=== PATIENT | male | born 1965 | race Caucasian/White ===

== ENCOUNTER → 2018-05-15 09:44 | Outpatient (CLI) | payer OTHER, SELFPAY ==
--- NOTE | 2018-05-15 09:45 | XR_ITS ---
EXAM: XR thoracic spine 3V HISTORY: ITS.REASON: pain Comparison: None FINDINGS: Normal alignment. No fracture or dislocation. No lytic or blastic change. Minimal endplate hypertrophic changes are present. Slight decrease in the disc space in the mid thoracic spine. IMPRESSION: Mild degenerative change mid thoracic spine, no acute finding
--- NOTE | 2018-05-15 09:45 | XR_ITS ---
EXAM: XR lumbar spine 2-3V HISTORY: ITS.REASON: pain ORDERING PHYSICIAN: Nissa Dueñas PATIENT AGE: 52 years COMPARISON: None FINDINGS: Normal alignment. No fracture or dislocation. No lytic or blastic change. Small endplate osteophytes are present with slight decrease in the disc space at L3-L4 and mild facet arthritic changes at L4-L5. IMPRESSION: Mild degenerative changes, no acute finding
[2018-05-15 13:30] LABS: Basophils % 0.2 % (0.1-2.0); Eosinophils % 0.7 % (0.1-12.0); Hematocrit 44.8 % (42.0-52.0); Hemoglobin 14.7 g/dL (14.1-18.0); Lymphocytes # 1.6 K/mm3 (0.7-4.5); Lymphocytes % 30.4 % (10-50); Mean Corpuscular HGB Conc 32.9 g/dL (31.8-35.4); Mean Corpuscular Hemoglobin 29.8 pg (27.0-31.2); Mean Corpuscular Volume 90.5 fl (80-94); Mean Platelet Volume 6.9 fl (7.4-10.4); Monocytes # 0.2 K/mm3 (0.1-1.0); Monocytes % 3.7 % (1.7-9.3); Neutrophils # 3.4 K/mm3 (1.8-7.8); Neutrophils % 64.9 % (37.0-80.0); Platelet Count 191 K/mm3 (142-424); Red Blood Count 4.94 M/mm3 (4.60-6.20); Red Cell Distribution Width 14.2 % (11.5-17.5); White Blood Count 5.3 K/mm3 (4.8-10.8)
[2018-05-15 14:48] LABS: Alanine Aminotransferase 22 U/L (12-78); Albumin Level 3.9 gm/dL (3.4-5.0); Albumin/Globulin Ratio 1.5 (1.1-1.8); Alkaline Phosphatase 76 U/L (46-116); Anion Gap 15.6 mEq/L (5-15); Aspartate Amino Transferase 11 U/L (15-37); Blood Urea Nitrogen 9 mg/dL (7-18); Calcium 8.7 mg/dL (8.5-10.1); Carbon Dioxide 24 mmol/L (21.0-32.0); Chloride 104 mmol/L (98-107); Chol/HDL Ratio 7.1 (1-3.5); Cholesterol 214 mg/dL (140-200); Creatinine,Serum 0.82 mg/dL (0.70-1.30); Estimated Glomerular Filt Rate 99 ml/min (>60); GFR (African American) 119 ML/MIN (>60); Globulin 2.6 gm/dl (1.3-3.2); Glucose 134 mg/dL (74-106); HDL Cholesterol 30 mg/dL (27-67); LDL Cholesterol 165 mg/dL (0-130); Potassium 3.6 mmoL/L (3.5-5.1); Sodium 140 mmol/L (136-145); T4 (Thyroxine) 8.2 ug/dl (4.7-13.3); Thyroid Stimulating Hormone 2.44 uIU/ml (0.358-3.740); Total Protein,Serum 6.5 gm/dL (6.4-8.2); Triglycerides 93 mg/dL (30-200); VLDL Cholesterol 19 mg/dL (0-40)
[2018-05-15 18:15] LABS: Amphetamine/Metha Screen,Urine Negative ng/mL (<1000); Barbiturates Screen,Urine Negative ng/mL (<200); Benzodiazepines Screen,Urine Negative ng/mL (<200); Cannabinoid Screen,Urine Negative ng/mL (<50); Cocaine Screen,Urine Negative ng/mL (<300); Methadone Screen,Urine Negative ng/mL (<300); Opiate Screen,Urine Negative ng/mL (<300); Phencyclidine Screen,Urine Negative ng/mL (<25)
[2018-05-16 16:13] LABS: Vitamin D 25 Hydroxy 20.4 ng/mL (30.0-100.0)
== END ==
PROVIDERS: PCP Nurse Practitioner Family; Visit Provider Nurse Practitioner Family
DX: M54.5 Low back pain (principal); M54.6 Pain in thoracic spine; R53.83 Other fatigue
CPT/HCPCS: 72072; 72100; 80053; 80061; 80305; 82652; 84436; 84443; 85025

== ENCOUNTER → 2018-06-03 09:38 | Outpatient (POV) | payer OTHER, SELFPAY ==
[2018-06-03 09:50] VITALS: BP 148/98; PULSE 66; RESP 18; O2SAT 98
--- NOTE | 2018-06-03 11:17 | HMH.PMCON ---
Assessment and Plan (1) Degenerative disc disease Current visit: Yes Status: Chronic Qualifiers: Spinal region: lumbar Qualified Code(s): M51.36 - Other intervertebral disc degeneration, lumbar region Category: Medical - Assessment and plan all Dx Assessment and Plan for all problems:: Patient and I had a long discussion in regards to medication management and intrathecal therapy and neurostimulator management. I offered to give him information in regards to these pain at this time with the pathology noted on his x-ray he is not a narcotic candidate. Also has some concerns with him going to multiple states to receive medications. I discussed with him we would not be prescribing medication. Patient states he is not interested in any other treatment that we can provide for him today. Patient is going to be returning to his primary care physician. This note was dictated using voice recognition software and may contain errors or omissions HPI - Data of Consult Consult date: 06/03/18 Requesting Physician: Christiana Lau APRN Primary Care Provider: Zeyad Craig MD Family Provider: Nissa Dueñas APRN - Consult Narrative Reason for consult: Back pain History of present illness: Mr. Jara is a 52 year old male resents today for consultation in regards to his low back pain. Patient states he has back pain after he fell out of the tree however he is unsure when this was. Patient states walking on an incline increased pain while rest and ibuprofen decrease his pain. His right leg numbness and tingling. He also states he has quite a bit of sharp pain. He rates his pain a 5 out of 10 today. Patient has been going to [place] in [place] and receiving oxycodone. He states I can no longer do this. Patient states he works at [employer]. I asked the patient if he had any recent imaging. Patient states he had an MRI 2 years ago in [place] he believes however he does not have that information. Patient does have some x-rays showing mild degenerative changes. I discussed with him that we do not do medication management. Patient is currently asking for oxycodone. Patient is asking what we can do for him today. CC: Christiana Lau APRN [facility] History I have reviewed the patient's past medical history: Yes Other Medical History: Reports: Other Other Surgeries: Yes: No Previous Surgery Amputation: No Fractures: Yes - *Social History Smoking Status: Current every day smoker Tobacco Type: cigarettes # Packs/Day (cigarettes): 1 Alcohol Intake: never Alcohol Intake Frequency:: other Substance Use Type: denies use Occupational Status: employed, other Housing: house - Psychiatric History Expresses thoughts of harming self/others: None Suicide Plan Description: No Plan *Family Hx:: Cancer, Hypertension, Heart Attack Review of Systems - Review of Systems ROS General: no recent weight change, no fever, no sleep disturbances Respiratory: no cough, no shortness of air, no recurring pulmonary infections Cardiovascular/Peripheral Vascular: No chest pain, No palpitations, no edema, no shortness of breath. Gastrointestinal: no incontinence, normal bowel movements reported Genitourinary: no incontinence Musculoskeletal: Back pain, leg pain Psychiatric: normal mood/ affect Neurological: [denies weakness in extremities], [denies balance issues] Meds Allergies Allergy/AdvReac Type Severity Reaction Status Date / Time morphine Allergy Mild Verified 05/15/18 08:38 pseudoephedrine Allergy Mild Verified 05/15/18 08:38 [From [facility]] Objective Vital signs: Pulse Resp BP Pulse Ox 66 18 148/98 H 98 06/03/18 09:50 06/03/18 09:50 06/03/18 09:50 06/03/18 09:50 Narrative: Physical Exam General: Alert and oriented x3, no acute distress, pleasant and cooperative, [on room air] Lungs: Resps E/U, Symmetrical chest expansion, Eyes: PERRL Musculoskeletal
--- NOTE | 2018-06-03 11:26 | P.CONS_ITS ---
Assessment and Plan (1) Degenerative disc disease Current visit: Yes Status: Chronic Qualifiers: Spinal region: lumbar Qualified Code(s): M51.36 - Other intervertebral disc degeneration, lumbar region Category: Medical - Assessment and plan all Dx Assessment and Plan for all problems:: Patient and I had a long discussion in regards to medication management and intrathecal therapy and neurostimulator management. I offered to give him information in regards to these pain at this time with the pathology noted on his x-ray he is not a narcotic candidate. Also has some concerns with him going to multiple states to receive medications. I discussed with him we would not be prescribing medication. Patient states he is not interested in any other treatment that we can provide for him today. Patient is going to be returning to his primary care physician. This note was dictated using voice recognition software and may contain errors or omissions HPI - Data of Consult Consult date: 06/03/18 Requesting Physician: Christiana Lau APRN Primary Care Provider: Zeyad Craig MD Family Provider: Nissa Dueñas APRN - Consult Narrative Reason for consult: Back pain History of present illness: Mr. Jara is a 52 year old male resents today for consultation in regards to his low back pain. Patient states he has back pain after he fell out of the tree however he is unsure when this was. Patient states walking on an incline increased pain while rest and ibuprofen decrease his pain. His right leg numbness and tingling. He also states he has quite a bit of sharp pain. He rates his pain a 5 out of 10 today. Patient has been going to [place] in [place] and receiving oxycodone. He states I can no longer do this. Patient states he works at [employer]. I asked the patient if he had any recent imaging. Patient states he had an MRI 2 years ago in [place] he believes however he does not have that information. Patient does have some x-rays showing mild degenerative changes. I discussed with him that we do not do medication management. Patient is currently asking for oxycodone. Patient is asking what we can do for him today. CC: Christiana Lau APRN [facility] History I have reviewed the patient's past medical history: Yes Other Medical History: Reports: Other Other Surgeries: Yes: No Previous Surgery Amputation: No Fractures: Yes - *Social History Smoking Status: Current every day smoker Tobacco Type: cigarettes # Packs/Day (cigarettes): 1 Alcohol Intake: never Alcohol Intake Frequency:: other Substance Use Type: denies use Occupational Status: employed, other Housing: house - Psychiatric History Expresses thoughts of harming self/others: None Suicide Plan Description: No Plan *Family Hx:: Cancer, Hypertension, Heart Attack Review of Systems - Review of Systems ROS General: no recent weight change, no fever, no sleep disturbances Respiratory: no cough, no shortness of air, no recurring pulmonary infections Cardiovascular/Peripheral Vascular: No chest pain, No palpitations, no edema, no shortness of breath. Gastrointestinal: no incontinence, normal bowel movements reported Genitourinary: no incontinence Musculoskeletal: Back pain, leg pain Psychiatric: normal mood/ affect Neurological: [denies weakness in extremities], [denies balance issues] Meds Allergies Allergy/AdvReac Type Severity Reaction Status Date / Time morphine Allergy
== END ==
PROVIDERS: PCP Emergency Medicine; Visit Provider Clinical Nurse Specialist Family Health
DX: M51.36 Other intervertebral disc degeneration, lumbar region (principal)
CPT/HCPCS: 99202

== ENCOUNTER → 2018-06-19 08:36 | Outpatient (CLI) | payer OTHER, SELFPAY | PROVIDERS: PCP Nurse Practitioner Family; Visit Provider Nurse Practitioner Family | DX: R73.9 Hyperglycemia, unspecified (principal) | CPT/HCPCS: 36415; 83036 ==

== ENCOUNTER → 2020-01-04 15:15 | Outpatient (CLI) | payer BC, SELFPAY ==
[2020-01-04 15:51] LABS: Basophils % 0.3 % (0.1-2.0); Eosinophils # 0.1 K/mm3 (0.0-0.4); Eosinophils % 2.1 % (0.1-12.0); Hematocrit 43.6 % (42.0-52.0); Hemoglobin 15.3 g/dL (14.1-18.0); Lymphocytes % 37.7 % (10-50); Mean Corpuscular HGB Conc 35.1 g/dL (31.8-35.4); Mean Corpuscular Hemoglobin 30.8 pg (27.0-31.2); Mean Corpuscular Volume 87.6 fl (80-94); Mean Platelet Volume 7.5 fl (7.4-10.4); Monocytes # 0.2 K/mm3 (0.1-1.0); Monocytes % 3.9 % (1.7-9.3); Neutrophils % 56.1 % (37.0-80.0); Platelet Count 194 K/mm3 (142-424); Red Blood Count 4.98 M/mm3 (4.60-6.20); Red Cell Distribution Width 14.5 % (11.5-17.5); White Blood Count 5.3 K/mm3 (4.8-10.8)
[2020-01-04 16:03] LABS: Chloride 106 mmol/L (98-107); Potassium 4.1 mmoL/L (3.5-5.1); Sodium 139 mmol/L (136-145)
[2020-01-04 16:05] LABS: Blood Urea Nitrogen 9 mg/dl (9-20); Estimated Glomerular Filt Rate 118 ml/min (>60); GFR (African American) 142 ML/MIN (>60)
[2020-01-04 16:06] LABS: Alanine Aminotransferase 14 U/L (12-78); Albumin Level 4.3 g/dl (3.5-5.0); Albumin/Globulin Ratio 1.6 (1.1-1.8); Alkaline Phosphatase 57 U/L (38-126); Anion Gap 14.1 mEq/L (5-15); Aspartate Amino Transferase 20 U/L (17-59); Bilirubin,Total 1.3 mg/dl (0.2-1.3); Calcium 9.2 mg/dl (8.4-10.2); Carbon Dioxide 23 mmol/L (22.0-30.0); Chol/HDL Ratio 8.2 (1-3.5); Cholesterol 246 mg/dl (140-200); Globulin 2.7 g/dL (1.3-3.2); Glucose 79 mg/dl (74-100); HDL Cholesterol 30 mg/dl (40-60); Triglycerides 147 mg/dl (30-150); VLDL Cholesterol 29 mg/dL (0-40)
[2020-01-04 16:17] LABS: Direct LDL Cholesterol 198.74 mg/dL (100-129)
[2020-01-04 16:23] LABS: Free T4 (Free Thyroxine) 1.14 ng/dl (0.78-2.19)
[2020-01-04 16:25] LABS: 25-OH Vitamin D, Total 38.8 ng/mL (30-100)
[2020-01-04 16:37] LABS: Thyroid Stimulating Hormone 3.05 uIU/mL (0.465-4.68)
[2020-01-06 11:57] LABS: PSA, Free 0.14 ng/mL; Prostate Specific Ag 2.3 ng/mL (0.0-4.0)
== END ==
PROVIDERS: Visit Provider Emergency Medicine
DX: I10 Essential (primary) hypertension (principal); R53.83 Other fatigue; R35.0 Frequency of micturition; E55.9 Vitamin D deficiency, unspecified
CPT/HCPCS: 80053; 80061; 82306; 84153; 84154; 84439; 84443; 85025; 87086; 87088; 87186

== ENCOUNTER → 2020-03-21 08:58 | Outpatient (CLI) | payer BC, SELFPAY ==
[2020-03-21 12:22] LABS: Coronavirus 19 IgG Antibody Negative (Negative); Coronavirus 19 IgM Antibody Negative (Negative)
== END ==
PROVIDERS: Visit Provider Surgery
DX: Z01.818 Encounter for other preprocedural examination (principal); Z12.11 Encounter for screening for malignant neoplasm of colon
CPT/HCPCS: 36415; 86328

== ENCOUNTER 2020-03-22 06:51 | Day surgery (SDC) | payer BC, SELFPAY ==
[2020-03-18 15:22] VITALS: BMI 29.0
[2020-03-22 07:34] VITALS: BP 143/91; PULSE 62; RESP 16; TEMP 36.2; O2SAT 97
[2020-03-22 08:02] VITALS: O2SAT 97
--- NOTE | 2020-03-22 08:04 | P.PN_ITS ---
[facility] Anesthesia Checklist - Patient Identification Patient Identification: Arm Band - Structural Data Admitted From: Home Planned Operative Procedure/s: colonoscopy Consent for Planned Operative Procedure(s) Verified: Yes Verified Documents: Surgical Consent, History and Physical - NPO Status Verified Time NPO: 00:00 - Additional verifications Anesthesia Reactions: No - Airway Assessment C-Spine Mobility Assessed: Yes (mp2) TMJ Mobility Assessed: Yes Dentition: Edentulous - Neurological Assessment Level of Consciousness: Awake, Alert - Anesthesia Plan Anesthesia Risk discussed: Yes Anesthesia Plan: Verified ASA Class: II Anesthesia Type: MAC [facility] History I have reviewed the patient's past medical history: Yes Medical History: Reports:: Hyperlipidemia Denies:: Cancer, Diabetes Mellitus Type 1, Diabetes Mellitus Type 2, Internal Pacemaker, MRSA, Seizures *Have you ever received a pneumonia vaccine?: Yes *Have you received a flu vaccine this season?: No Other Medical History: Reports: Arthritis, Other Anesthesia experience/problems:: nac Other Surgeries: Yes: No Previous Surgery. No: Pacemaker Amputation: No Fractures: Yes - *Social History Last grade of school completed: GED Smoking Status: Current every day smoker Tobacco Type: cigarettes # Packs/Day (cigarettes): 1 Alcohol Intake: never Alcohol Intake Frequency:: other Substance Use Type: denies use *Occupational Status:: unemployed Housing: house Household Members: none *Travel in the last 8 weeks: None Family Hx:: Cancer, Hypertension, Heart Attack
[2020-03-22 08:50] VITALS: BP 107/63; PULSE 65; RESP 16; TEMP 36.4; O2SAT 90
--- NOTE | 2020-03-22 08:50 | HMH.SCOPE ---
- Procedure: Date: 03/22/20 Patient Date of :: 1965 Procedure Performed:: Total colonoscopy with polypectomy by snare Indications:: Patient is a 54-year-old male from [place] referred by Dr. Craig for initial screening colonoscopy. He is asymptomatic. Denies hematochezia or melena. No family history of colon cancer. Performing Provider:: Julio Dalton MD Referring Provider:: Sherwin Craig Sedation:: Propofol Procedure:: Patient was taken to endoscopy procedure room. He was positioned in a lateral decubitus position. Adequate intravenous sedation was achieved with anesthesia titration of propofol. Variable stiffness Olympus colonoscope was inserted via the anus. Was advanced to the cecum. Colonic preparation was poor due to large amount of undigested vegetable matter throughout the colon. Thorough irrigation and suctioning was performed. Attempt was made to use the Jacques net to remove some of the vegetable matter with limited success. Ultimately the ileocecal valve and appendiceal orifice were identified. Colonoscope was slowly withdrawn through the colon with careful surveillance. However, visualization was suboptimal due to the large amount of retained vegetable matter in the colon. There were a few rare diverticuli. In the distal sigmoid colon there was a tiny diminutive polyp removed with cold cutting snare. In the rectum there was a moderate pedunculated irregular sessile polyp measuring about 10 mm removed with cold cutting snare. Retroflexion revealed nonpathologic internal hemorrhoids. Colonoscope was withdrawn. Findings:: Poor colonic preparation due to large amount of retained undigested vegetable matter Rare diverticuli Diminutive polyp at rectosigmoid, likely hyperplastic Irregular pedunculated 10 mm polyp in the rectum Recommendations:: Given the poor preparation and findings of polyps recommend repeat colonoscopy in 1 year, no more than 2 years pending pathology. He would need to be on a low residue diet and possibly 2-day preparation Complications:: None immediately apparent Estimated blood obtained (mL): 2
[2020-03-22 09:00] VITALS: BP 123/81; PULSE 60; RESP 16; O2SAT 97
[2020-03-22 09:10] VITALS: BP 121/86; PULSE 58; RESP 16; O2SAT 98
[2020-03-22 09:20] VITALS: BP 138/92; PULSE 59; RESP 16; TEMP 36.4; O2SAT 98
== END 2020-03-22 09:24 | disposition home or self-care (01) ==
LOC: OUTP 06:53
PROVIDERS: PCP Emergency Medicine; Visit Provider Surgery
PROC: 0DJD8ZZ Inspection of Lower Intestinal Tract, Via Natural or Artificial Opening Endoscopic (ICD-10-PCS; CPT 45385; principal; 2020-03-22 08:00)
DX: Z12.11 Encounter for screening for malignant neoplasm of colon (principal); K57.30 Diverticulosis of large intestine without perforation or abscess without bleeding; K63.5 Polyp of colon; K62.1 Rectal polyp; E78.5 Hyperlipidemia, unspecified; M19.90 Unspecified osteoarthritis, unspecified site; Z72.0 Tobacco use; Z80.9 Family history of malignant neoplasm, unspecified; Z82.49 Family history of ischemic heart disease and other diseases of the circulatory system; Z82.3 Family history of stroke; Z88.5 Allergy status to narcotic agent; Z88.8 Allergy status to other drugs, medicaments and biological substances
CPT/HCPCS: 45385

== ENCOUNTER → 2020-10-04 15:38 | Outpatient (CLI) | payer BC, SELFPAY ==
[2020-10-04 15:45] LABS: Basophils % 0.3 % (0.1-2.0); Eosinophils # 0.1 K/mm3 (0.0-0.4); Eosinophils % 1.3 % (0.1-12.0); Hemoglobin 15.4 g/dL (14.1-18.0); Lymphocytes # 2.3 K/mm3 (0.7-4.5); Lymphocytes % 35.5 % (10-50); Mean Corpuscular HGB Conc 34.3 g/dL (31.8-35.4); Mean Corpuscular Hemoglobin 30.5 pg (27.0-31.2); Mean Platelet Volume 7.9 fl (7.4-10.4); Monocytes # 0.3 K/mm3 (0.1-1.0); Monocytes % 4.3 % (1.7-9.3); Neutrophils # 3.7 K/mm3 (1.8-7.8); Neutrophils % 58.5 % (37.0-80.0); Platelet Count 198 K/mm3 (142-424); Red Blood Count 5.05 M/mm3 (4.60-6.20); Red Cell Distribution Width 14.1 % (11.5-17.5); White Blood Count 6.4 K/mm3 (4.8-10.8)
[2020-10-04 15:49] LABS: Chloride 107 mmol/L (98-107); Potassium 4.3 mmoL/L (3.5-5.1); Sodium 138 mmol/L (136-145)
[2020-10-04 15:52] LABS: Alanine Aminotransferase 31 U/L (12-78); Albumin Level 4.4 g/dl (3.5-5.0); Albumin/Globulin Ratio 1.8 (1.1-1.8); Alkaline Phosphatase 77 U/L (38-126); Anion Gap 9.3 mEq/L (5-15); Aspartate Amino Transferase 28 U/L (17-59); Bilirubin,Total 1.2 mg/dl (0.2-1.3); Blood Urea Nitrogen 17 mg/dl (9-20); Carbon Dioxide 26 mmol/L (22.0-30.0); Cholesterol 246 mg/dl (140-200); Estimated Glomerular Filt Rate 78 ml/min (>60); GFR (African American) 94 ML/MIN (>60); Globulin 2.5 g/dL (1.3-3.2); Total Protein,Serum 6.9 g/dl (6.3-8.2); Triglycerides 355 mg/dl (30-150); VLDL Cholesterol 71 mg/dL (0-40)
[2020-10-04 15:53] LABS: Calcium 9.4 mg/dl (8.4-10.2); Chol/HDL Ratio 10.3 (1-3.5); Glucose 105 mg/dl (74-100); HDL Cholesterol 24 mg/dl (40-60)
[2020-10-04 16:05] LABS: Direct LDL Cholesterol 155.87 mg/dL (100-129)
[2020-10-04 16:11] LABS: T4 (Thyroxine) 8.7 ug/dl (5.53-11.0)
[2020-10-04 16:25] LABS: Thyroid Stimulating Hormone 2.27 uIU/mL (0.465-4.68)
[2020-10-06 14:03] LABS: PSA, Free 0.14 ng/mL; Prostate Specific Ag 0.5 ng/mL (0.0-4.0)
== END ==
PROVIDERS: Visit Provider Emergency Medicine
DX: M51.36 Other intervertebral disc degeneration, lumbar region (principal); E78.5 Hyperlipidemia, unspecified; E66.9 Obesity, unspecified; Z68.31 Body mass index [BMI] 31.0-31.9, adult; Z12.5 Encounter for screening for malignant neoplasm of prostate; F17.210 Nicotine dependence, cigarettes, uncomplicated
CPT/HCPCS: 80053; 80061; 84153; 84154; 84436; 84443; 85025

== ENCOUNTER 2021-02-02 12:53 | Outpatient (CLI) | payer BC, SELFPAY ==
[2021-02-02 13:19] VITALS: BP 117/63; PULSE 67; RESP 18; TEMP 36.4; O2SAT 97
[2021-02-02 14:05] VITALS: BP 132/89; PULSE 71; RESP 17; TEMP 36.4; O2SAT 98
== END 2021-02-02 14:10 | disposition home or self-care (01) ==
LOC: INF 12:53
PROVIDERS: Visit Provider Orthopaedic Surgery
DX: S51.802A Unspecified open wound of left forearm, initial encounter (principal); Z45.2 Encounter for adjustment and management of vascular access device
CPT/HCPCS: 96365; J1335

== ENCOUNTER 2021-02-03 09:35 | Outpatient (CLI) | payer BC, SELFPAY ==
[2021-02-03 09:46] VITALS: BP 132/88; PULSE 70; RESP 17; TEMP 36.7; O2SAT 98
[2021-02-03 10:35] VITALS: BP 151/96; PULSE 61; RESP 17; O2SAT 98
== END 2021-02-03 10:41 | disposition home or self-care (01) ==
LOC: INF 09:36
DX: S51.802A Unspecified open wound of left forearm, initial encounter (principal); Z45.2 Encounter for adjustment and management of vascular access device
CPT/HCPCS: 96365; J1335

== ENCOUNTER 2021-02-04 10:17 | Outpatient (CLI) | payer BC, SELFPAY ==
[2021-02-04 10:30] VITALS: BP 133/55; PULSE 93; RESP 18; O2SAT 96
== END 2021-02-04 11:20 | disposition home or self-care (01) ==
LOC: INF 10:18
PROVIDERS: PCP Emergency Medicine; Visit Provider Orthopaedic Surgery
DX: S51.802A Unspecified open wound of left forearm, initial encounter (principal); Z45.2 Encounter for adjustment and management of vascular access device
CPT/HCPCS: 96365; 96413; J1335

== ENCOUNTER 2021-02-05 11:07 | Outpatient (CLI) | payer BC, SELFPAY ==
--- NOTE | 2021-02-05 12:30 | PC.NURSE ---
picc line dressing was changed per pt request r/t dressing peeling off. biopatch replaced as well.
== END 2021-02-05 12:15 | disposition home or self-care (01) ==
LOC: INF 11:09
PROVIDERS: PCP Emergency Medicine; Visit Provider Orthopaedic Surgery
DX: S51.802A Unspecified open wound of left forearm, initial encounter (principal); Z45.2 Encounter for adjustment and management of vascular access device
CPT/HCPCS: 96365; G0463; J1335

== ENCOUNTER 2021-02-06 10:57 | Outpatient (CLI) | payer BC, SELFPAY ==
[2021-02-06 11:00] VITALS: BMI 31.2
[2021-02-06 11:25] VITALS: BP 139/97; PULSE 68; RESP 18; TEMP 36.6; O2SAT 97
[2021-02-06 12:01] LABS: Basophils % 0.2 % (0.1-2.0); Eosinophils % 0.7 % (0.1-12.0); Hematocrit 38.7 % (42.0-52.0); Hemoglobin 13.1 g/dL (14.1-18.0); Lymphocytes # 2.1 K/mm3 (0.7-4.5); Lymphocytes % 34.8 % (10-50); Mean Corpuscular HGB Conc 33.7 g/dL (31.8-35.4); Mean Corpuscular Hemoglobin 28.4 pg (27.0-31.2); Mean Corpuscular Volume 84.3 fl (80-94); Mean Platelet Volume 7.2 fl (7.4-10.4); Monocytes # 0.3 K/mm3 (0.1-1.0); Monocytes % 4.5 % (1.7-9.3); Neutrophils # 3.6 K/mm3 (1.8-7.8); Neutrophils % 59.8 % (37.0-80.0); Platelet Count 195 K/mm3 (142-424)
[2021-02-06 12:02] LABS: Chloride 106 mmol/L (98-107); Potassium 4.2 mmoL/L (3.5-5.1); Sodium 139 mmol/L (136-145)
[2021-02-06 12:04] LABS: Alanine Aminotransferase 58 U/L (12-78); Alkaline Phosphatase 79 U/L (38-126); Aspartate Amino Transferase 40 U/L (17-59); Bilirubin,Total 0.9 mg/dl (0.2-1.3); Blood Urea Nitrogen 13 mg/dl (9-20); Creatinine Clearance Estimated 167 mL/min (50-200); Estimated Glomerular Filt Rate 117 ml/min (>60); GFR (African American) 142 ML/MIN (>60)
[2021-02-06 12:05] LABS: Albumin Level 4.6 g/dl (3.5-5.0); Albumin/Globulin Ratio 1.5 (1.1-1.8); Anion Gap 11.2 mEq/L (5-15); Calcium 9.5 mg/dl (8.4-10.2); Carbon Dioxide 26 mmol/L (22.0-30.0); Glucose 100 mg/dl (74-100); Total Protein,Serum 7.6 g/dl (6.3-8.2)
[2021-02-06 12:10] VITALS: BP 134/84; PULSE 65; RESP 18; O2SAT 98
[2021-02-06 12:10] LABS: C-Reactive Protein 3.9 mg/L (0-4)
== END 2021-02-06 12:10 | disposition home or self-care (01) ==
LOC: INF 10:57
PROVIDERS: Visit Provider Orthopaedic Surgery
DX: S51.802A Unspecified open wound of left forearm, initial encounter (principal)
CPT/HCPCS: 80053; 85025; 86140; 96365; G0463; J1335

== ENCOUNTER 2021-02-07 09:59 | Outpatient (CLI) | payer BC, SELFPAY ==
[2021-02-07 10:08] VITALS: BP 132/85; PULSE 61; RESP 16; TEMP 36.4; O2SAT 98
== END 2021-02-07 10:55 | disposition home or self-care (01) ==
LOC: INF 09:59
PROVIDERS: Visit Provider Orthopaedic Surgery
DX: S51.802A Unspecified open wound of left forearm, initial encounter (principal)
CPT/HCPCS: 96365; J1335

== ENCOUNTER 2021-02-08 09:55 | Outpatient (CLI) | payer BC, SELFPAY ==
[2021-02-08 10:04] VITALS: BP 128/83; PULSE 62; RESP 17; TEMP 36.4; O2SAT 97
[2021-02-08 10:28] VITALS: BP 150/90; PULSE 58; RESP 17; TEMP 36.5; O2SAT 97
== END 2021-02-08 10:40 | disposition home or self-care (01) ==
LOC: INF 10:28
PROVIDERS: Visit Provider Orthopaedic Surgery
DX: S51.802A Unspecified open wound of left forearm, initial encounter (principal)
CPT/HCPCS: 96365; J1335

== ENCOUNTER 2021-02-09 12:01 | Outpatient (CLI) | payer BC, SELFPAY ==
[2021-02-09 12:15] VITALS: BP 124/91; PULSE 78; RESP 18; TEMP 36.4; O2SAT 98
[2021-02-09 13:00] VITALS: BP 131/87; PULSE 77; RESP 18; O2SAT 99
== END 2021-02-09 13:00 | disposition home or self-care (01) ==
LOC: INF 12:01
PROVIDERS: Visit Provider Orthopaedic Surgery
DX: S51.802A Unspecified open wound of left forearm, initial encounter (principal); Z45.2 Encounter for adjustment and management of vascular access device
CPT/HCPCS: 96365; J1335

== ENCOUNTER 2021-02-10 09:16 | Outpatient (CLI) | payer BC, SELFPAY ==
[2021-02-10 09:28] VITALS: BP 141/77; PULSE 90; RESP 18; TEMP 36.3; O2SAT 97
== END 2021-02-10 10:20 | disposition home or self-care (01) ==
LOC: INF 09:16
PROVIDERS: Visit Provider Orthopaedic Surgery
DX: S51.802A Unspecified open wound of left forearm, initial encounter (principal)
CPT/HCPCS: 96365; J1335

== ENCOUNTER 2021-02-11 11:04 | Outpatient (CLI) | payer BC, SELFPAY | END 2021-02-11 12:25 | disposition home or self-care (01) | LOC: INF 11:05 | PROVIDERS: PCP Emergency Medicine; Visit Provider Orthopaedic Surgery | DX: S51.802A Unspecified open wound of left forearm, initial encounter (principal) | CPT/HCPCS: 96365; J1335 ==

== ENCOUNTER 2021-02-12 12:22 | Outpatient (CLI) | payer BC, SELFPAY | END 2021-02-12 13:30 | disposition home or self-care (01) | LOC: INF 12:26 | PROVIDERS: PCP Emergency Medicine; Visit Provider Orthopaedic Surgery | DX: S51.802A Unspecified open wound of left forearm, initial encounter (principal) | CPT/HCPCS: 96365; J1335 ==

== ENCOUNTER 2021-02-13 10:55 | Outpatient (CLI) | payer BC, SELFPAY ==
[2021-02-13 10:55] VITALS: BMI 31.2
[2021-02-13 11:40] LABS: Basophils % 0.2 % (0.1-2.0); Eosinophils # 0.1 K/mm3 (0.0-0.4); Eosinophils % 1.2 % (0.1-12.0); Hematocrit 37.5 % (42.0-52.0); Hemoglobin 12.7 g/dL (14.1-18.0); Lymphocytes # 1.9 K/mm3 (0.7-4.5); Mean Corpuscular Hemoglobin 28.3 pg (27.0-31.2); Mean Corpuscular Volume 83.5 fl (80-94); Mean Platelet Volume 7.4 fl (7.4-10.4); Monocytes # 0.3 K/mm3 (0.1-1.0); Monocytes % 4.7 % (1.7-9.3); Neutrophils # 3.2 K/mm3 (1.8-7.8); Neutrophils % 58.9 % (37.0-80.0); Platelet Count 188 K/mm3 (142-424); Red Blood Count 4.49 M/mm3 (4.60-6.20); Red Cell Distribution Width 16.7 % (11.5-17.5); White Blood Count 5.5 K/mm3 (4.8-10.8)
[2021-02-13 11:41] LABS: Chloride 108 mmol/L (98-107); Potassium 3.9 mmoL/L (3.5-5.1); Sodium 141 mmol/L (136-145)
[2021-02-13 11:42] VITALS: BP 125/87; PULSE 68; RESP 20; TEMP 36.9; O2SAT 95
[2021-02-13 11:43] LABS: Alanine Aminotransferase 50 U/L (12-78); Aspartate Amino Transferase 36 U/L (17-59); Blood Urea Nitrogen 9 mg/dl (9-20); Creatinine Clearance Estimated 167 mL/min (50-200); Estimated Glomerular Filt Rate 117 ml/min (>60); GFR (African American) 142 ML/MIN (>60)
[2021-02-13 11:44] LABS: Albumin Level 4.5 g/dl (3.5-5.0); Albumin/Globulin Ratio 1.8 (1.1-1.8); Alkaline Phosphatase 83 U/L (38-126); Anion Gap 11.9 mEq/L (5-15); Calcium 9.3 mg/dl (8.4-10.2); Carbon Dioxide 25 mmol/L (22.0-30.0); Globulin 2.5 g/dL (1.3-3.2); Glucose 94 mg/dl (74-100)
[2021-02-13 11:49] LABS: C-Reactive Protein 2.1 mg/L (0-4)
[2021-02-13 12:15] VITALS: BP 124/88; PULSE 68; RESP 20; TEMP 36.6; O2SAT 95
== END 2021-02-13 12:16 | disposition home or self-care (01) ==
LOC: INF 10:55
PROVIDERS: Visit Provider Orthopaedic Surgery
DX: S51.802A Unspecified open wound of left forearm, initial encounter (principal)
CPT/HCPCS: 80053; 85025; 86140; 96365

== ENCOUNTER 2021-02-14 12:36 | Outpatient (CLI) | payer BC, SELFPAY ==
[2021-02-14 12:42] VITALS: BP 110/75; PULSE 61; RESP 18; TEMP 36.4; O2SAT 99
[2021-02-14 13:12] VITALS: BP 119/72; PULSE 68; RESP 18; O2SAT 98
[2021-02-14 13:45] VITALS: BP 125/78; PULSE 68; RESP 18; O2SAT 98
== END 2021-02-14 13:45 | disposition home or self-care (01) ==
LOC: INF 12:36
PROVIDERS: Visit Provider Orthopaedic Surgery
DX: S51.802A Unspecified open wound of left forearm, initial encounter (principal); Z45.2 Encounter for adjustment and management of vascular access device
CPT/HCPCS: 96365; J1335

== ENCOUNTER 2021-02-15 09:40 | Outpatient (CLI) | payer BC, SELFPAY ==
[2021-02-15 10:00] VITALS: BP 125/76; PULSE 65; RESP 18; TEMP 36.4; O2SAT 98
[2021-02-15 10:35] VITALS: BP 143/88; PULSE 56; RESP 18; O2SAT 98
== END 2021-02-15 11:00 | disposition home or self-care (01) ==
LOC: INF 09:45
PROVIDERS: Visit Provider Orthopaedic Surgery
DX: S51.801A Unspecified open wound of right forearm, initial encounter (principal); Z45.2 Encounter for adjustment and management of vascular access device
CPT/HCPCS: 96365; J1335

== ENCOUNTER 2021-02-16 12:41 | Outpatient (CLI) | payer BC, SELFPAY ==
[2021-02-16 12:55] VITALS: BP 105/63; PULSE 70; RESP 20; TEMP 36.8; O2SAT 98
[2021-02-16 13:35] VITALS: BP 124/85; PULSE 76; RESP 20; O2SAT 99
== END 2021-02-16 13:35 | disposition home or self-care (01) ==
LOC: INF 12:41
PROVIDERS: Visit Provider Orthopaedic Surgery
DX: S51.802D Unspecified open wound of left forearm, subsequent encounter (principal)
CPT/HCPCS: 96365; J1335

== ENCOUNTER 2021-02-17 11:19 | Outpatient (CLI) | payer BC, SELFPAY ==
[2021-02-17 11:35] VITALS: BP 141/81; PULSE 56; RESP 20; TEMP 36.9; O2SAT 95
[2021-02-17 12:21] VITALS: BP 125/98; PULSE 68; RESP 20; TEMP 36.9; O2SAT 95
== END 2021-02-17 12:25 | disposition home or self-care (01) ==
LOC: INF 11:19
PROVIDERS: Visit Provider Orthopaedic Surgery
DX: S51.802D Unspecified open wound of left forearm, subsequent encounter (principal); Z45.2 Encounter for adjustment and management of vascular access device
CPT/HCPCS: 96365; J1335

== ENCOUNTER 2021-02-18 12:16 | Outpatient (CLI) | payer BC, SELFPAY | END 2021-02-18 14:12 | disposition home or self-care (01) | LOC: INF 12:16 | PROVIDERS: PCP Emergency Medicine; Visit Provider Orthopaedic Surgery | DX: S51.802D Unspecified open wound of left forearm, subsequent encounter (principal); Z45.2 Encounter for adjustment and management of vascular access device | CPT/HCPCS: 96365; J1335 ==

== ENCOUNTER 2021-02-19 12:03 | Outpatient (CLI) | payer BC, SELFPAY ==
[2021-02-19 12:10] VITALS: BP 131/87; PULSE 69; RESP 18; TEMP 37.1; O2SAT 99
== END 2021-02-19 12:45 | disposition home or self-care (01) ==
LOC: INF 12:04
PROVIDERS: PCP Emergency Medicine; Visit Provider Orthopaedic Surgery
DX: S51.802A Unspecified open wound of left forearm, initial encounter (principal)
CPT/HCPCS: 96365; J1335

== ENCOUNTER 2021-02-20 08:42 | Outpatient (CLI) | payer BC, SELFPAY ==
[2021-02-20 09:18] VITALS: BMI 31.2
[2021-02-20 09:31] LABS: Basophils % 0.4 % (0.1-2.0); Eosinophils # 0.1 K/mm3 (0.0-0.4); Eosinophils % 1.7 % (0.1-12.0); Hematocrit 39.2 % (42.0-52.0); Lymphocytes # 1.7 K/mm3 (0.7-4.5); Lymphocytes % 27.3 % (10-50); Mean Corpuscular HGB Conc 33.2 g/dL (31.8-35.4); Mean Corpuscular Hemoglobin 28.7 pg (27.0-31.2); Mean Corpuscular Volume 86.5 fl (80-94); Mean Platelet Volume 8.4 fl (7.4-10.4); Monocytes # 0.2 K/mm3 (0.1-1.0); Monocytes % 3.7 % (1.7-9.3); Neutrophils # 4.1 K/mm3 (1.8-7.8); Neutrophils % 66.9 % (37.0-80.0); Platelet Count 174 K/mm3 (142-424); Red Blood Count 4.54 M/mm3 (4.60-6.20); Red Cell Distribution Width 16.2 % (11.5-17.5); White Blood Count 6.2 K/mm3 (4.8-10.8)
[2021-02-20 09:36] LABS: Chloride 108 mmol/L (98-107)
[2021-02-20 09:37] LABS: Potassium 3.9 mmoL/L (3.5-5.1); Sodium 142 mmol/L (136-145)
[2021-02-20 09:39] LABS: Alanine Aminotransferase 47 U/L (12-78); Aspartate Amino Transferase 30 U/L (17-59); Blood Urea Nitrogen 9 mg/dl (9-20); Creatinine Clearance Estimated 167 mL/min (50-200); Estimated Glomerular Filt Rate 117 ml/min (>60); GFR (African American) 142 ML/MIN (>60)
[2021-02-20 09:40] VITALS: BP 111/74; PULSE 59; RESP 18; TEMP 36.4; O2SAT 98
[2021-02-20 09:40] LABS: Albumin Level 4.1 g/dl (3.5-5.0); Albumin/Globulin Ratio 1.6 (1.1-1.8); Alkaline Phosphatase 84 U/L (38-126); Anion Gap 13.9 mEq/L (5-15); Bilirubin,Total 1.4 mg/dl (0.2-1.3); Calcium 9.1 mg/dl (8.4-10.2); Carbon Dioxide 24 mmol/L (22.0-30.0); Globulin 2.5 g/dL (1.3-3.2); Glucose 101 mg/dl (74-100); Total Protein,Serum 6.6 g/dl (6.3-8.2)
[2021-02-20 09:45] LABS: C-Reactive Protein 3.1 mg/L (0-4)
[2021-02-20 10:15] VITALS: BP 121/78; PULSE 61; RESP 18; O2SAT 98
== END 2021-02-20 10:15 | disposition home or self-care (01) ==
LOC: INF 08:43
PROVIDERS: PCP Emergency Medicine; Visit Provider Orthopaedic Surgery
DX: S51.802A Unspecified open wound of left forearm, initial encounter (principal); Z45.2 Encounter for adjustment and management of vascular access device
CPT/HCPCS: 80053; 85025; 86140; 96365; J1335

== ENCOUNTER 2021-02-21 12:48 | Outpatient (CLI) | payer BC, SELFPAY ==
[2021-02-21 13:05] VITALS: BP 117/65; PULSE 76; RESP 18; TEMP 36.6; O2SAT 97
[2021-02-21 13:59] VITALS: BP 121/69; PULSE 78; RESP 18; O2SAT 97
== END 2021-02-21 14:02 | disposition home or self-care (01) ==
LOC: INF 12:50
PROVIDERS: PCP Emergency Medicine; Visit Provider Orthopaedic Surgery
DX: S51.802A Unspecified open wound of left forearm, initial encounter (principal)
CPT/HCPCS: 96365; J1335

== ENCOUNTER 2021-02-22 08:00 | Outpatient (RCR) | payer BC, SELFPAY | END 2021-02-22 08:05 | disposition home or self-care (01) | LOC: PT 08:00 | PROVIDERS: PCP Emergency Medicine; Visit Provider Orthopaedic Surgery | DX: S51.802A Unspecified open wound of left forearm, initial encounter (principal) | CPT/HCPCS: 97163; 97597; 97605 ==

== ENCOUNTER 2021-02-22 08:07 | Outpatient (CLI) | payer BC, SELFPAY ==
[2021-02-22 08:37] VITALS: BP 137/80; PULSE 77; RESP 18; O2SAT 97
[2021-02-22 09:15] VITALS: BP 159/97; PULSE 59; RESP 18
== END 2021-02-22 09:15 | disposition home or self-care (01) ==
LOC: INF 08:08
PROVIDERS: PCP Emergency Medicine; Visit Provider Orthopaedic Surgery
DX: S51.802A Unspecified open wound of left forearm, initial encounter (principal)
CPT/HCPCS: 96365; J1335

== ENCOUNTER 2021-02-23 09:26 | Outpatient (CLI) | payer BC, SELFPAY ==
[2021-02-23 10:20] VITALS: BP 136/76; PULSE 61; RESP 18; TEMP 36.3; O2SAT 98
[2021-02-23 11:00] VITALS: BP 131/72; PULSE 68; RESP 18; O2SAT 98
== END 2021-02-23 11:00 | disposition home or self-care (01) ==
LOC: INF 09:27
PROVIDERS: PCP Emergency Medicine; Visit Provider Orthopaedic Surgery
DX: T81.49XA Infection following a procedure, other surgical site, initial encounter (principal); S51.802A Unspecified open wound of left forearm, initial encounter; Z20.822 Contact with and (suspected) exposure to COVID-19; Z45.2 Encounter for adjustment and management of vascular access device
CPT/HCPCS: 96365; J1335; U0003

== ENCOUNTER 2021-02-25 11:29 | Outpatient (CLI) | payer BC, SELFPAY | END 2021-02-25 12:17 | disposition home or self-care (01) | LOC: INF 11:29 | PROVIDERS: PCP Emergency Medicine; Visit Provider Orthopaedic Surgery | DX: S51.802A Unspecified open wound of left forearm, initial encounter (principal) | CPT/HCPCS: 96365; J1335 ==

== ENCOUNTER 2021-02-26 10:16 | Outpatient (CLI) | payer BC, SELFPAY | END 2021-02-26 11:15 | disposition home or self-care (01) | LOC: INF 10:17 | PROVIDERS: PCP Emergency Medicine; Visit Provider Orthopaedic Surgery | DX: S51.802A Unspecified open wound of left forearm, initial encounter (principal) | CPT/HCPCS: 96365; J1335 ==

== ENCOUNTER 2021-02-27 12:03 | Outpatient (CLI) | payer BC, SELFPAY ==
[2021-02-27 12:09] VITALS: BMI 31.2
[2021-02-27 12:30] LABS: Basophils % 0.4 % (0.1-2.0); Eosinophils # 0.1 K/mm3 (0.0-0.4); Eosinophils % 1.5 % (0.1-12.0); Hematocrit 38.7 % (42.0-52.0); Hemoglobin 12.9 g/dL (14.1-18.0); Lymphocytes % 36.7 % (10-50); Mean Corpuscular HGB Conc 33.3 g/dL (31.8-35.4); Mean Corpuscular Hemoglobin 28.9 pg (27.0-31.2); Mean Corpuscular Volume 86.8 fl (80-94); Mean Platelet Volume 8.5 fl (7.4-10.4); Monocytes # 0.2 K/mm3 (0.1-1.0); Monocytes % 4.3 % (1.7-9.3); Neutrophils # 3.1 K/mm3 (1.8-7.8); Neutrophils % 57.2 % (37.0-80.0); Platelet Count 188 K/mm3 (142-424); Red Blood Count 4.47 M/mm3 (4.60-6.20); Red Cell Distribution Width 15.8 % (11.5-17.5); White Blood Count 5.3 K/mm3 (4.8-10.8)
[2021-02-27 12:33] LABS: Chloride 108 mmol/L (98-107); Sodium 141 mmol/L (136-145)
[2021-02-27 12:34] LABS: Potassium 3.8 mmoL/L (3.5-5.1)
[2021-02-27 12:36] LABS: Alanine Aminotransferase 37 U/L (12-78); Albumin Level 3.9 g/dl (3.5-5.0); Albumin/Globulin Ratio 1.4 (1.1-1.8); Alkaline Phosphatase 78 U/L (38-126); Anion Gap 11.8 mEq/L (5-15); Aspartate Amino Transferase 33 U/L (17-59); Bilirubin,Total 1.1 mg/dl (0.2-1.3); Blood Urea Nitrogen 9 mg/dl (9-20); Carbon Dioxide 25 mmol/L (22.0-30.0); Creatinine Clearance Estimated 146 mL/min (50-200); Estimated Glomerular Filt Rate 100 ml/min (>60); GFR (African American) 121 ML/MIN (>60); Globulin 2.7 g/dL (1.3-3.2); Glucose 108 mg/dl (74-100); Total Protein,Serum 6.6 g/dl (6.3-8.2)
[2021-02-27 12:40] VITALS: BP 114/76; PULSE 64; RESP 18; O2SAT 96
[2021-02-27 12:42] LABS: C-Reactive Protein 20.1 mg/L (0-4)
[2021-02-27 13:15] VITALS: BP 117/63; PULSE 69; RESP 18
== END 2021-02-27 13:15 | disposition home or self-care (01) ==
LOC: INF 12:04
PROVIDERS: PCP Emergency Medicine; Visit Provider Orthopaedic Surgery
DX: S51.802A Unspecified open wound of left forearm, initial encounter (principal)
CPT/HCPCS: 80053; 85025; 86140; 96365; J1335

== ENCOUNTER 2021-02-28 11:05 | Outpatient (CLI) | payer BC, SELFPAY ==
[2021-02-28 11:20] VITALS: BP 138/68; PULSE 66; RESP 18; TEMP 36.7; O2SAT 99
[2021-02-28 12:08] VITALS: BP 143/79; PULSE 64; RESP 18
== END 2021-02-28 12:08 | disposition home or self-care (01) ==
LOC: INF 11:06
PROVIDERS: PCP Emergency Medicine; Visit Provider Orthopaedic Surgery
DX: S51.802D Unspecified open wound of left forearm, subsequent encounter (principal)
CPT/HCPCS: 96365; J1335

== ENCOUNTER 2021-03-01 15:24 | Outpatient (CLI) | payer BC, SELFPAY ==
[2021-03-01 15:46] VITALS: BP 133/79; PULSE 59; RESP 18; TEMP 36.6; O2SAT 97
[2021-03-01 16:37] VITALS: BP 130/78; PULSE 59; RESP 18; O2SAT 98
== END 2021-03-01 16:39 | disposition home or self-care (01) ==
LOC: INF 15:25
PROVIDERS: PCP Emergency Medicine; Visit Provider Orthopaedic Surgery
DX: S51.802D Unspecified open wound of left forearm, subsequent encounter (principal)
CPT/HCPCS: 96365; J1335

== ENCOUNTER 2021-03-02 12:27 | Outpatient (CLI) | payer BC, SELFPAY ==
[2021-03-02 12:45] VITALS: BP 128/89; PULSE 63; RESP 18; TEMP 36.7; O2SAT 97
[2021-03-02 13:32] VITALS: BP 117/78; PULSE 61; RESP 18
== END 2021-03-02 13:32 | disposition home or self-care (01) ==
LOC: INF 12:27
PROVIDERS: PCP Emergency Medicine; Visit Provider Orthopaedic Surgery
DX: S51.802D Unspecified open wound of left forearm, subsequent encounter (principal)
CPT/HCPCS: 96365; J1335

== ENCOUNTER 2021-03-03 13:18 | Outpatient (CLI) | payer BC, SELFPAY ==
[2021-03-03 13:38] VITALS: BP 108/56; PULSE 67; RESP 18; O2SAT 98
[2021-03-03 14:15] VITALS: BP 115/68; PULSE 60; RESP 16
== END 2021-03-03 14:30 | disposition home or self-care (01) ==
LOC: INF 13:19
PROVIDERS: PCP Emergency Medicine; Visit Provider Orthopaedic Surgery
DX: S51.802D Unspecified open wound of left forearm, subsequent encounter (principal)
CPT/HCPCS: 96365; J1335

== ENCOUNTER 2021-03-04 11:59 | Outpatient (CLI) | payer BC, SELFPAY ==
[2021-03-04 12:23] VITALS: BP 111/73; PULSE 63; RESP 18; TEMP 36.9; O2SAT 96
== END 2021-03-04 12:50 | disposition home or self-care (01) ==
LOC: INF 12:00
PROVIDERS: PCP Emergency Medicine; Visit Provider Orthopaedic Surgery
DX: S51.802D Unspecified open wound of left forearm, subsequent encounter (principal)
CPT/HCPCS: 96365; J1335

== ENCOUNTER 2021-03-05 12:34 | Outpatient (CLI) | payer BC, SELFPAY ==
[2021-03-05 12:50] VITALS: BP 107/74; PULSE 62; RESP 16; O2SAT 96
== END 2021-03-05 13:30 | disposition home or self-care (01) ==
LOC: INF 12:34
PROVIDERS: PCP Emergency Medicine; Visit Provider Orthopaedic Surgery
DX: S51.802D Unspecified open wound of left forearm, subsequent encounter (principal)
CPT/HCPCS: 96365; J1335

== ENCOUNTER 2021-03-06 08:51 | Outpatient (CLI) | payer BC, SELFPAY ==
[2021-03-06 09:12] VITALS: BP 135/85; PULSE 62; RESP 16; TEMP 37.1; O2SAT 97
[2021-03-06 09:46] LABS: Chloride 107 mmol/L (98-107); Potassium 3.8 mmoL/L (3.5-5.1); Sodium 141 mmol/L (136-145)
[2021-03-06 09:47] LABS: Basophils % 0.3 % (0.1-2.0); Eosinophils # 0.1 K/mm3 (0.0-0.4); Eosinophils % 1.2 % (0.1-12.0); Hematocrit 41.3 % (42.0-52.0); Hemoglobin 13.4 g/dL (14.1-18.0); Lymphocytes # 1.9 K/mm3 (0.7-4.5); Lymphocytes % 36.9 % (10-50); Mean Corpuscular HGB Conc 32.4 g/dL (31.8-35.4); Mean Corpuscular Hemoglobin 28.5 pg (27.0-31.2); Mean Platelet Volume 7.6 fl (7.4-10.4); Monocytes # 0.2 K/mm3 (0.1-1.0); Monocytes % 4.3 % (1.7-9.3); Neutrophils # 2.9 K/mm3 (1.8-7.8); Neutrophils % 57.3 % (37.0-80.0); Platelet Count 198 K/mm3 (142-424); Red Blood Count 4.69 M/mm3 (4.60-6.20)
[2021-03-06 09:48] LABS: Blood Urea Nitrogen 10 mg/dl (9-20); Estimated Glomerular Filt Rate 100 ml/min (>60); GFR (African American) 121 ML/MIN (>60)
[2021-03-06 09:49] LABS: Alanine Aminotransferase 35 U/L (12-78); Albumin Level 3.9 g/dl (3.5-5.0); Albumin/Globulin Ratio 1.6 (1.1-1.8); Alkaline Phosphatase 76 U/L (38-126); Anion Gap 13.8 mEq/L (5-15); Aspartate Amino Transferase 26 U/L (17-59); Calcium 9.2 mg/dl (8.4-10.2); Carbon Dioxide 24 mmol/L (22.0-30.0); Globulin 2.5 g/dL (1.3-3.2); Glucose 133 mg/dl (74-100); Total Protein,Serum 6.4 g/dl (6.3-8.2)
[2021-03-06 09:50] VITALS: BP 136/84; PULSE 64; RESP 17; TEMP 37.1; O2SAT 97
[2021-03-06 09:55] LABS: C-Reactive Protein 3.4 mg/L (0-4)
[2021-03-06 10:04] VITALS: BP 136/84; PULSE 64; RESP 17; TEMP 37.1; O2SAT 97
== END 2021-03-06 09:50 | disposition home or self-care (01) ==
LOC: INF 08:52
PROVIDERS: PCP Emergency Medicine; Visit Provider Orthopaedic Surgery
DX: S51.802D Unspecified open wound of left forearm, subsequent encounter (principal)
CPT/HCPCS: 80053; 85025; 86140; 96365; G0463; J1335

== ENCOUNTER 2021-03-07 10:25 | Outpatient (CLI) | payer BC, SELFPAY ==
[2021-03-07 10:37] VITALS: BP 114/72; PULSE 67; RESP 18; TEMP 36.5; O2SAT 100
[2021-03-07 11:25] VITALS: BP 121/79; PULSE 79; RESP 18; O2SAT 99
== END 2021-03-07 11:25 | disposition home or self-care (01) ==
LOC: INF 10:26
PROVIDERS: PCP Emergency Medicine; Visit Provider Orthopaedic Surgery
DX: S51.802D Unspecified open wound of left forearm, subsequent encounter (principal)
CPT/HCPCS: 96365; J1335

== ENCOUNTER 2021-03-08 10:20 | Outpatient (CLI) | payer BC, SELFPAY ==
[2021-03-08 10:35] VITALS: BP 136/81; PULSE 58; RESP 18; O2SAT 98
[2021-03-08 11:28] VITALS: BP 127/91; PULSE 58; RESP 18; O2SAT 98
== END 2021-03-08 11:28 | disposition home or self-care (01) ==
LOC: INF 10:20
PROVIDERS: PCP Emergency Medicine; Visit Provider Orthopaedic Surgery
DX: S51.802D Unspecified open wound of left forearm, subsequent encounter (principal)
CPT/HCPCS: 96365; J1335

== ENCOUNTER 2021-03-09 13:00 | Outpatient (CLI) | payer BC, SELFPAY ==
[2021-03-09 13:21] VITALS: BP 120/73; PULSE 67; RESP 18; TEMP 36.4; O2SAT 98
[2021-03-09 14:10] VITALS: BP 118/78; PULSE 69; RESP 18; O2SAT 98
== END 2021-03-09 14:10 | disposition home or self-care (01) ==
LOC: INF 13:01
PROVIDERS: PCP Emergency Medicine; Visit Provider Orthopaedic Surgery
DX: S51.802D Unspecified open wound of left forearm, subsequent encounter (principal)
CPT/HCPCS: 96365; J1335

== ENCOUNTER 2021-03-10 10:39 | Outpatient (CLI) | payer BC, SELFPAY ==
[2021-03-10 11:35] VITALS: BP 116/90; PULSE 57; RESP 18; TEMP 36.6; O2SAT 98
[2021-03-10 12:30] VITALS: BP 135/88; PULSE 59; RESP 16; TEMP 36.6; O2SAT 98
== END 2021-03-10 12:40 | disposition home or self-care (01) ==
LOC: INF 10:40
PROVIDERS: PCP Emergency Medicine; Visit Provider Orthopaedic Surgery
DX: S51.802A Unspecified open wound of left forearm, initial encounter (principal)
CPT/HCPCS: 96365; J1335

== ENCOUNTER 2021-03-30 09:09 | Outpatient (RCR) | payer BC, SELFPAY | END 2021-03-30 09:15 | disposition home or self-care (01) | LOC: OT 09:09 | PROVIDERS: PCP Emergency Medicine; Visit Provider Physician Assistant Medical | DX: M24.542 Contracture, left hand (principal) | CPT/HCPCS: 97140; 97165 ==

== ENCOUNTER 2021-03-30 09:10 | Outpatient (RCR) | payer BC, SELFPAY | END 2021-03-30 09:15 | disposition home or self-care (01) | LOC: PT 09:10 | PROVIDERS: PCP Emergency Medicine; Visit Provider Plastic Surgery | DX: R60.0 Localized edema (principal); M79.602 Pain in left arm | CPT/HCPCS: 97162; 97760 ==

== ENCOUNTER → 2021-04-10 16:27 | Outpatient (CLI) | payer BC, SELFPAY | PROVIDERS: Visit Provider Plastic Surgery | DX: Z20.822 Contact with and (suspected) exposure to COVID-19 (principal) | CPT/HCPCS: C9803; U0003; U0005 ==

== ENCOUNTER 2022-06-08 14:00 | Outpatient (RCR) | payer BC, SELFPAY | END 2022-06-08 14:05 | disposition home or self-care (01) | LOC: OT 14:00 | PROVIDERS: PCP Emergency Medicine; Visit Provider Orthopaedic Surgery | DX: M25.511 Pain in right shoulder (principal); Z98.890 Other specified postprocedural states | CPT/HCPCS: 97010; 97014; 97110; 97140; 97164; 97166; 97530; G0283 ==

== ENCOUNTER → 2022-06-08 18:36 | Outpatient (CLI) | payer BC, SELFPAY ==
[2022-06-08 19:37] LABS: Amphetamine/Metha Screen,Urine Negative ng/ml (<1000)
[2022-06-08 19:38] LABS: Barbiturates Screen,Urine Negative ng/ml (<200); Benzodiazepines Screen,Urine Negative ng/ml (<200)
[2022-06-08 19:39] LABS: Cannabinoid Screen,Urine Negative ng/ml (<50)
[2022-06-08 19:40] LABS: Cocaine Screen,Urine Negative ng/ml (<300); Methadone Screen,Urine Negative ng/ml (<300)
[2022-06-08 19:41] LABS: Phencyclidine Screen,Urine Negative ng/ml (<25)
[2022-06-08 19:42] LABS: Opiate Screen,Urine Negative ng/ml (<300)
== END ==
PROVIDERS: PCP Emergency Medicine; Visit Provider Emergency Medicine
DX: Z79.899 Other long term (current) drug therapy (principal)
CPT/HCPCS: 80305

== ENCOUNTER 2022-06-20 10:35 | Outpatient (CLI) | payer BC, SELFPAY ==
[2022-06-20 10:56] VITALS: BMI 33.4
[2022-06-20 11:23] LABS: Alanine Aminotransferase 75 U/L (12-78); Albumin Level 4.6 g/dl (3.5-5.0); Alkaline Phosphatase 67 U/L (38-126); Aspartate Amino Transferase 54 U/L (17-59); Bilirubin,Direct 0.2 mg/dl (0.0-0.4); Bilirubin,Indirect 1.3 mg/dL (0.0-0.9); Bilirubin,Total 1.5 mg/dl (0.2-1.3); Bilirubin,Unconjugated 1.3 mg/dL (0.0-1.1); Creatine Kinase 45 U/L (55-170); Total Protein,Serum 7.2 g/dl (6.3-8.2)
[2022-06-20 11:24] LABS: Basophils % 0.6 % (0.1-2.0); Blood Urea Nitrogen 7 mg/dl (9-20); Creatinine Clearance Estimated 176 mL/min (50-200); Eosinophils # 0.1 K/mm3 (0.0-0.4); Eosinophils % 0.8 % (0.1-12.0); Estimated Glomerular Filt Rate 117 ml/min (>60); GFR (African American) 141 ML/MIN (>60); Hematocrit 45.2 % (42.0-52.0); Hemoglobin 15.1 g/dL (14.1-18.0); Lymphocytes % 30.7 % (10-50); Mean Corpuscular HGB Conc 33.5 g/dL (31.8-35.4); Mean Corpuscular Hemoglobin 29.9 pg (27.0-31.2); Mean Corpuscular Volume 89.2 fl (80-94); Mean Platelet Volume 7.5 fl (7.4-10.4); Monocytes # 0.3 K/mm3 (0.1-1.0); Monocytes % 5.3 % (1.7-9.3); Neutrophils % 62.5 % (37.0-80.0); Platelet Count 190 K/mm3 (142-424); Red Blood Count 5.06 M/mm3 (4.60-6.20); Red Cell Distribution Width 15.1 % (11.5-17.5); White Blood Count 6.5 K/mm3 (4.8-10.8)
[2022-06-20 11:28] VITALS: BP 136/93; PULSE 81; RESP 18; TEMP 36.3; O2SAT 98
[2022-06-20 11:29] LABS: C-Reactive Protein 3.2 mg/L (0-4)
[2022-06-20 11:55] VITALS: BP 133/98; PULSE 68; RESP 18; O2SAT 98
== END 2022-06-20 11:55 | disposition home or self-care (01) ==
PROVIDERS: PCP Emergency Medicine; Visit Provider Orthopaedic Surgery
DX: S52.252 Displaced comminuted fracture of shaft of ulna, left arm (principal)
CPT/HCPCS: 80076; 82550; 82565; 84520; 85025; 86140; 96365; 96367; J0878; J1335

== ENCOUNTER 2022-06-21 10:32 | Outpatient (CLI) | payer BC, SELFPAY ==
[2022-06-21 11:08] VITALS: BP 148/82; PULSE 111; RESP 18; O2SAT 97
[2022-06-21 11:58] VITALS: BP 130/83; PULSE 82; RESP 18
== END 2022-06-21 12:10 | disposition home or self-care (01) ==
LOC: INF 10:33
PROVIDERS: PCP Emergency Medicine; Visit Provider Orthopaedic Surgery
DX: S52.252 Displaced comminuted fracture of shaft of ulna, left arm (principal)
CPT/HCPCS: 96365; 96367; J0878; J1335

== ENCOUNTER 2022-06-22 10:16 | Outpatient (CLI) | payer BC, SELFPAY ==
[2022-06-22 10:45] VITALS: BP 129/89; PULSE 84; RESP 18; O2SAT 97
[2022-06-22 11:44] VITALS: BP 136/82; PULSE 86; RESP 18
== END 2022-06-22 11:44 | disposition home or self-care (01) ==
LOC: INF 10:17
PROVIDERS: PCP Emergency Medicine; Visit Provider Orthopaedic Surgery
DX: S52.252 Displaced comminuted fracture of shaft of ulna, left arm (principal)
CPT/HCPCS: 96365; 96367; J0878; J1335

== ENCOUNTER → 2022-06-23 11:25 | Outpatient (CLI) | payer BC, SELFPAY ==
[2022-06-23 11:40] VITALS: BP 141/87; PULSE 102; RESP 17; TEMP 36.7; O2SAT 100
== END ==
PROVIDERS: PCP Emergency Medicine; Visit Provider Orthopaedic Surgery
DX: S52.252 Displaced comminuted fracture of shaft of ulna, left arm (principal)
CPT/HCPCS: 96365; 96367; G0463; J0878; J1335

== ENCOUNTER → 2022-06-24 09:28 | Outpatient (CLI) | payer BC, SELFPAY ==
[2022-06-24 10:03] VITALS: BP 133/96; PULSE 86; RESP 18; TEMP 36.7; O2SAT 100
[2022-06-24 11:22] VITALS: BP 133/85; PULSE 82; RESP 18; TEMP 36.7; O2SAT 100
== END ==
PROVIDERS: PCP Emergency Medicine; Visit Provider Orthopaedic Surgery
DX: S52.252 Displaced comminuted fracture of shaft of ulna, left arm (principal)
CPT/HCPCS: 96365; 96367; G0463; J0878; J1335

== ENCOUNTER 2022-06-25 11:06 | Outpatient (CLI) | payer BC, SELFPAY ==
[2022-06-25 11:27] VITALS: BMI 33.4
[2022-06-25 11:51] LABS: Bilirubin,Unconjugated 1.4 mg/dL (0.0-1.1); Creatinine Clearance Estimated 154 mL/min (50-200); Estimated Glomerular Filt Rate 100 ml/min (>60); GFR (African American) 121 ML/MIN (>60)
[2022-06-25 11:52] LABS: Alanine Aminotransferase 77 U/L (12-78); Albumin Level 4.1 g/dl (3.5-5.0); Alkaline Phosphatase 66 U/L (38-126); Aspartate Amino Transferase 53 U/L (17-59); Bilirubin,Direct 0.2 mg/dl (0.0-0.4); Bilirubin,Indirect 1.4 mg/dL (0.0-0.9); Bilirubin,Total 1.6 mg/dl (0.2-1.3); Blood Urea Nitrogen 13 mg/dl (9-20); Creatine Kinase 59 U/L (55-170); Total Protein,Serum 6.5 g/dl (6.3-8.2)
[2022-06-25 11:54] LABS: Basophils % 0.5 % (0.1-2.0); Eosinophils # 0.1 K/mm3 (0.0-0.4); Eosinophils % 1.3 % (0.1-12.0); Hematocrit 40.1 % (42.0-52.0); Hemoglobin 13.7 g/dL (14.1-18.0); Lymphocytes # 1.9 K/mm3 (0.7-4.5); Lymphocytes % 38.6 % (10-50); Mean Corpuscular HGB Conc 34.2 g/dL (31.8-35.4); Mean Corpuscular Hemoglobin 29.9 pg (27.0-31.2); Mean Corpuscular Volume 87.6 fl (80-94); Mean Platelet Volume 7.6 fl (7.4-10.4); Monocytes # 0.2 K/mm3 (0.1-1.0); Monocytes % 3.8 % (1.7-9.3); Neutrophils # 2.8 K/mm3 (1.8-7.8); Neutrophils % 55.7 % (37.0-80.0); Platelet Count 189 K/mm3 (142-424); Red Blood Count 4.58 M/mm3 (4.60-6.20)
[2022-06-25 11:58] LABS: C-Reactive Protein 6.1 mg/L (0-4)
[2022-06-25 12:25] VITALS: BP 137/89; BP 138/84; PULSE 85; RESP 18; O2SAT 96
== END 2022-06-25 12:25 | disposition home or self-care (01) ==
LOC: INF 11:07
PROVIDERS: PCP Emergency Medicine; Visit Provider Orthopaedic Surgery
DX: S52.252 Displaced comminuted fracture of shaft of ulna, left arm (principal)
CPT/HCPCS: 80076; 82550; 82565; 84520; 85025; 86140; 96365; 96367; J0878; J1335

== ENCOUNTER 2022-06-26 10:47 | Outpatient (CLI) | payer BC, SELFPAY ==
[2022-06-26 11:15] VITALS: BP 133/90; PULSE 95; RESP 18; O2SAT 98
[2022-06-26 12:00] VITALS: BP 132/90; PULSE 77; RESP 18; O2SAT 99
== END 2022-06-26 12:00 | disposition home or self-care (01) ==
LOC: INF 10:47
PROVIDERS: PCP Emergency Medicine; Visit Provider Orthopaedic Surgery
DX: S52.252 Displaced comminuted fracture of shaft of ulna, left arm (principal)
CPT/HCPCS: 96365; 96367; J0878; J1335

== ENCOUNTER 2022-06-27 13:13 | Outpatient (CLI) | payer BC, SELFPAY ==
[2022-06-27 13:45] VITALS: BP 141/98; PULSE 88; RESP 18; O2SAT 97
[2022-06-27 14:45] VITALS: BP 127/97; PULSE 76; RESP 18
== END 2022-06-27 14:45 | disposition home or self-care (01) ==
LOC: INF 13:13
PROVIDERS: PCP Emergency Medicine; Visit Provider Orthopaedic Surgery
DX: S52.252 Displaced comminuted fracture of shaft of ulna, left arm (principal)
CPT/HCPCS: 96365; 96367; J0878; J1335

== ENCOUNTER 2022-06-28 10:37 | Outpatient (CLI) | payer BC, SELFPAY ==
[2022-06-28 11:10] VITALS: BP 110/77; PULSE 81; RESP 18; TEMP 36.4; O2SAT 99
[2022-06-28 12:00] VITALS: BP 115/76; PULSE 71; RESP 18; O2SAT 99
== END 2022-06-28 12:00 | disposition home or self-care (01) ==
LOC: INF 10:38
PROVIDERS: PCP Emergency Medicine; Visit Provider Orthopaedic Surgery
DX: S52.252 Displaced comminuted fracture of shaft of ulna, left arm (principal)
CPT/HCPCS: 96365; J0878; J1335

== ENCOUNTER 2022-06-29 10:15 | Outpatient (CLI) | payer BC, SELFPAY ==
[2022-06-29 10:55] VITALS: BP 134/99; PULSE 82; RESP 18; O2SAT 98
[2022-06-29 12:06] VITALS: BP 137/95; PULSE 80; RESP 18
== END 2022-06-29 12:06 | disposition home or self-care (01) ==
LOC: INF 10:16
PROVIDERS: PCP Emergency Medicine; Visit Provider Orthopaedic Surgery
DX: S52.252 Displaced comminuted fracture of shaft of ulna, left arm (principal)
CPT/HCPCS: 96365; 96367; J0878; J1335

== ENCOUNTER → 2022-06-30 11:55 | Outpatient (CLI) | payer BC, SELFPAY ==
[2022-06-30 12:30] VITALS: BP 131/85; PULSE 80; RESP 18; TEMP 36.9; O2SAT 98
== END ==
PROVIDERS: PCP Emergency Medicine; Visit Provider Orthopaedic Surgery
DX: S52.252 Displaced comminuted fracture of shaft of ulna, left arm (principal)
CPT/HCPCS: 96365; 96367; J0878; J1335

== ENCOUNTER 2022-07-01 11:59 | Outpatient (CLI) | payer BC, SELFPAY ==
[2022-07-01 12:14] VITALS: BMI 33.3
== END 2022-07-01 13:15 | disposition home or self-care (01) ==
PROVIDERS: PCP Emergency Medicine; Visit Provider Orthopaedic Surgery
DX: S52.252 Displaced comminuted fracture of shaft of ulna, left arm (principal)
CPT/HCPCS: 96365; 96367; J0878; J1335

== ENCOUNTER 2022-07-02 10:57 | Outpatient (CLI) | payer BC, SELFPAY ==
[2022-07-02 11:07] VITALS: BMI 33.4
[2022-07-02 11:21] VITALS: BP 120/78; PULSE 82; RESP 16; TEMP 36.4; O2SAT 97
[2022-07-02 11:34] LABS: Basophils % 0.6 % (0.1-2.0); Eosinophils # 0.1 K/mm3 (0.0-0.4); Eosinophils % 1.6 % (0.1-12.0); Hematocrit 40.8 % (42.0-52.0); Hemoglobin 14.1 g/dL (14.1-18.0); Lymphocytes # 1.6 K/mm3 (0.7-4.5); Lymphocytes % 38.5 % (10-50); Mean Corpuscular HGB Conc 34.6 g/dL (31.8-35.4); Mean Corpuscular Hemoglobin 30.3 pg (27.0-31.2); Mean Corpuscular Volume 87.8 fl (80-94); Mean Platelet Volume 7.7 fl (7.4-10.4); Monocytes # 0.2 K/mm3 (0.1-1.0); Monocytes % 3.5 % (1.7-9.3); Neutrophils # 2.3 K/mm3 (1.8-7.8); Neutrophils % 55.7 % (37.0-80.0); Platelet Count 197 K/mm3 (142-424); Red Blood Count 4.65 M/mm3 (4.60-6.20); Red Cell Distribution Width 15.1 % (11.5-17.5); White Blood Count 4.2 K/mm3 (4.8-10.8)
[2022-07-02 11:40] LABS: Blood Urea Nitrogen 11 mg/dl (9-20); Creatine Kinase 53 U/L (55-170); Creatinine Clearance Estimated 154 mL/min (50-200); Estimated Glomerular Filt Rate 100 ml/min (>60); GFR (African American) 121 ML/MIN (>60)
[2022-07-02 11:46] LABS: C-Reactive Protein 2.3 mg/L (0-4)
[2022-07-02 12:19] VITALS: BP 123/79; PULSE 75; RESP 16; TEMP 36.4; O2SAT 97
== END 2022-07-02 12:25 | disposition home or self-care (01) ==
LOC: INF 10:58
PROVIDERS: PCP Emergency Medicine; Visit Provider Orthopaedic Surgery
DX: S52.252 Displaced comminuted fracture of shaft of ulna, left arm (principal)
CPT/HCPCS: 82550; 82565; 84520; 85025; 86140; 96365; 96367; J0878; J1335

== ENCOUNTER 2022-07-03 09:42 | Outpatient (CLI) | payer BC, SELFPAY ==
[2022-07-03 10:15] VITALS: BP 124/99; PULSE 98; RESP 18; O2SAT 98
[2022-07-03 11:03] VITALS: BP 128/84; PULSE 72; RESP 18
== END 2022-07-03 11:03 | disposition home or self-care (01) ==
LOC: INF 09:43
PROVIDERS: PCP Emergency Medicine; Visit Provider Orthopaedic Surgery
DX: S52.252 Displaced comminuted fracture of shaft of ulna, left arm (principal)
CPT/HCPCS: 96365; 96367; J0878; J1335

== ENCOUNTER 2022-07-04 10:41 | Outpatient (CLI) | payer BC, SELFPAY ==
[2022-07-04 11:05] VITALS: BP 134/86; PULSE 75; RESP 18; O2SAT 99
[2022-07-04 11:36] VITALS: BP 142/92; PULSE 71; RESP 18; O2SAT 99
== END 2022-07-04 11:36 | disposition home or self-care (01) ==
LOC: INF 10:42
PROVIDERS: PCP Emergency Medicine; Visit Provider Orthopaedic Surgery
DX: S52.252 Displaced comminuted fracture of shaft of ulna, left arm (principal)
CPT/HCPCS: 96365; 96367; J0878; J1335

== ENCOUNTER 2022-07-05 10:37 | Outpatient (CLI) | payer BC, SELFPAY ==
[2022-07-05 10:42] VITALS: BMI 33.4
[2022-07-05 11:00] VITALS: BP 115/84; PULSE 75; RESP 16; TEMP 36.4; O2SAT 97
[2022-07-05 11:21] LABS: Alanine Aminotransferase 94 U/L (12-78); Alkaline Phosphatase 65 U/L (38-126); Aspartate Amino Transferase 50 U/L (17-59); Bilirubin,Direct 0.2 mg/dl (0.0-0.4); Bilirubin,Indirect 0.9 mg/dL (0.0-0.9); Bilirubin,Total 1.1 mg/dl (0.2-1.3); Bilirubin,Unconjugated 0.9 mg/dL (0.0-1.1); Total Protein,Serum 6.4 g/dl (6.3-8.2)
[2022-07-05 11:52] VITALS: BP 135/88; PULSE 67; RESP 16; TEMP 36.4; O2SAT 98
== END 2022-07-05 11:55 | disposition home or self-care (01) ==
LOC: INF 10:37
PROVIDERS: PCP Emergency Medicine; Visit Provider Orthopaedic Surgery
DX: S52.252 Displaced comminuted fracture of shaft of ulna, left arm (principal)
CPT/HCPCS: 80076; 96365; 96367; J0878; J1335

== ENCOUNTER 2022-07-06 10:52 | Outpatient (CLI) | payer BC, SELFPAY ==
[2022-07-06 11:45] VITALS: BP 145/84; PULSE 76; RESP 18; O2SAT 99
[2022-07-06 12:10] VITALS: BP 143/88; PULSE 71; RESP 18; O2SAT 99
== END 2022-07-06 12:10 | disposition home or self-care (01) ==
LOC: INF 10:52
PROVIDERS: PCP Emergency Medicine; Visit Provider Orthopaedic Surgery
DX: S52.252 Displaced comminuted fracture of shaft of ulna, left arm (principal)
CPT/HCPCS: 96365; 96367; J0878; J1335

== ENCOUNTER 2022-07-07 13:36 | Outpatient (CLI) | payer BC, SELFPAY | END 2022-07-07 14:35 | disposition home or self-care (01) | LOC: INF 13:36 | PROVIDERS: PCP Emergency Medicine; Visit Provider Orthopaedic Surgery | DX: S52.252 Displaced comminuted fracture of shaft of ulna, left arm (principal) | CPT/HCPCS: 96365; 96367; J0878; J1335 ==

== ENCOUNTER → 2022-07-08 13:50 | Outpatient (CLI) | payer BC, SELFPAY ==
[2022-07-08 14:04] VITALS: BP 133/87; PULSE 83; RESP 20; TEMP 36.9; O2SAT 95
== END ==
PROVIDERS: PCP Emergency Medicine; Visit Provider Orthopaedic Surgery
DX: S52.252 Displaced comminuted fracture of shaft of ulna, left arm (principal)
CPT/HCPCS: 96365; 96367; J0878; J1335

== ENCOUNTER 2022-07-09 12:51 | Outpatient (CLI) | payer BC, SELFPAY ==
[2022-07-09 12:56] VITALS: BMI 33.4
[2022-07-09 13:13] VITALS: BP 142/90; PULSE 89; RESP 18; O2SAT 99
[2022-07-09 13:18] LABS: Basophils # 0.1 K/mm3 (0-0.2); Basophils % 1.6 % (0.1-2.0); Eosinophils # 0.1 K/mm3 (0.0-0.4); Eosinophils % 2.8 % (0.1-12.0); Hematocrit 41.9 % (42.0-52.0); Hemoglobin 14.2 g/dL (14.1-18.0); Lymphocytes # 1.6 K/mm3 (0.7-4.5); Mean Corpuscular HGB Conc 33.9 g/dL (31.8-35.4); Mean Corpuscular Hemoglobin 30.7 pg (27.0-31.2); Mean Corpuscular Volume 90.4 fl (80-94); Mean Platelet Volume 7.4 fl (7.4-10.4); Monocytes # 0.2 K/mm3 (0.1-1.0); Monocytes % 4.5 % (1.7-9.3); Neutrophils # 2.6 K/mm3 (1.8-7.8); Neutrophils % 56.1 % (37.0-80.0); Platelet Count 206 K/mm3 (142-424); Red Blood Count 4.64 M/mm3 (4.60-6.20); Red Cell Distribution Width 15.1 % (11.5-17.5); White Blood Count 4.6 K/mm3 (4.8-10.8)
[2022-07-09 13:22] LABS: Blood Urea Nitrogen 6 mg/dl (9-20); Creatinine Clearance Estimated 154 mL/min (50-200); Estimated Glomerular Filt Rate 100 ml/min (>60); GFR (African American) 121 ML/MIN (>60)
[2022-07-09 13:23] LABS: Alanine Aminotransferase 97 U/L (12-78); Albumin Level 4.1 g/dl (3.5-5.0); Alkaline Phosphatase 66 U/L (38-126); Aspartate Amino Transferase 51 U/L (17-59); Bilirubin,Direct 0.2 mg/dl (0.0-0.4); Bilirubin,Indirect 1.3 mg/dL (0.0-0.9); Bilirubin,Total 1.5 mg/dl (0.2-1.3); Bilirubin,Unconjugated 1.3 mg/dL (0.0-1.1); Creatine Kinase 64 U/L (55-170); Total Protein,Serum 6.8 g/dl (6.3-8.2)
[2022-07-09 13:29] LABS: C-Reactive Protein 4.6 mg/L (0-4)
[2022-07-09 14:22] VITALS: BP 141/85; PULSE 72; RESP 18
== END 2022-07-09 14:22 | disposition home or self-care (01) ==
LOC: INF 12:52
PROVIDERS: PCP Emergency Medicine; Visit Provider Orthopaedic Surgery
DX: S52.252 Displaced comminuted fracture of shaft of ulna, left arm (principal)
CPT/HCPCS: 80076; 82550; 82565; 84520; 85025; 86140; 96365; 96367; J0878; J1335

== ENCOUNTER 2022-07-10 13:00 | Outpatient (CLI) | payer BC, SELFPAY ==
[2022-07-10 13:43] VITALS: BP 142/71; PULSE 72; RESP 18; TEMP 36.1; O2SAT 99
[2022-07-10 14:21] VITALS: BP 136/68; PULSE 67; RESP 18; O2SAT 99
== END 2022-07-10 14:22 | disposition home or self-care (01) ==
LOC: INF 13:01
PROVIDERS: PCP Emergency Medicine; Visit Provider Orthopaedic Surgery
DX: S52.252 Displaced comminuted fracture of shaft of ulna, left arm (principal)
CPT/HCPCS: 96365; 96367; J0878; J1335

== ENCOUNTER 2022-07-11 13:22 | Outpatient (CLI) | payer BC, SELFPAY ==
[2022-07-11 14:00] VITALS: BP 132/77; PULSE 81; RESP 18; TEMP 36.2; O2SAT 99
== END 2022-07-11 14:45 | disposition home or self-care (01) ==
LOC: INF 13:23
PROVIDERS: PCP Emergency Medicine; Visit Provider Orthopaedic Surgery
DX: S52.252 Displaced comminuted fracture of shaft of ulna, left arm (principal)
CPT/HCPCS: 96365; 96367; J0878; J1335

== ENCOUNTER 2022-07-12 13:54 | Outpatient (CLI) | payer BC, SELFPAY ==
[2022-07-12 14:17] VITALS: BP 112/85; PULSE 92; RESP 16; TEMP 36.9; O2SAT 97
[2022-07-12 15:13] VITALS: BP 123/81; PULSE 88; RESP 16; TEMP 36.9; O2SAT 97
== END 2022-07-12 15:13 | disposition home or self-care (01) ==
LOC: INF 13:54
PROVIDERS: PCP Emergency Medicine; Visit Provider Orthopaedic Surgery
DX: S52.252 Displaced comminuted fracture of shaft of ulna, left arm (principal)
CPT/HCPCS: 96365; 96367; J0878; J1335

== ENCOUNTER 2022-07-13 12:58 | Outpatient (CLI) | payer BC, SELFPAY ==
[2022-07-13 13:28] VITALS: BP 134/74; PULSE 68; RESP 18; TEMP 36.1; O2SAT 99
[2022-07-13 14:20] VITALS: BP 136/76; PULSE 69; RESP 20; O2SAT 99
== END 2022-07-13 14:20 | disposition home or self-care (01) ==
LOC: INF 12:58
PROVIDERS: PCP Emergency Medicine; Visit Provider Orthopaedic Surgery
DX: S52.252 Displaced comminuted fracture of shaft of ulna, left arm (principal)
CPT/HCPCS: 96365; 96367; J0878; J1335

== ENCOUNTER 2022-07-14 14:53 | Outpatient (CLI) | payer BC, SELFPAY ==
[2022-07-14 14:45] VITALS: BMI 33.3
== END 2022-07-14 15:47 | disposition home or self-care (01) ==
LOC: INF 14:54
PROVIDERS: PCP Emergency Medicine; Visit Provider Orthopaedic Surgery
DX: S52.252 Displaced comminuted fracture of shaft of ulna, left arm (principal)
CPT/HCPCS: 96365; 96367; J0878; J1335

== ENCOUNTER 2022-07-15 13:24 | Outpatient (CLI) | payer BC, SELFPAY ==
[2022-07-15 13:44] VITALS: BMI 33.3
== END 2022-07-15 14:18 | disposition home or self-care (01) ==
LOC: INF 13:25
PROVIDERS: PCP Emergency Medicine; Visit Provider Orthopaedic Surgery
DX: S52.252 Displaced comminuted fracture of shaft of ulna, left arm (principal)
CPT/HCPCS: 96365; 96367; J0878; J1335

== ENCOUNTER 2022-07-16 12:56 | Outpatient (CLI) | payer BC, SELFPAY ==
[2022-07-16 13:03] VITALS: BMI 33.4
[2022-07-16 13:27] LABS: Basophils # 0.1 K/mm3 (0-0.2); Basophils % 1.1 % (0.1-2.0); Eosinophils # 0.1 K/mm3 (0.0-0.4); Eosinophils % 1.1 % (0.1-12.0); Hematocrit 45.3 % (42.0-52.0); Hemoglobin 15.5 g/dL (14.1-18.0); Lymphocytes # 1.9 K/mm3 (0.7-4.5); Mean Corpuscular HGB Conc 34.2 g/dL (31.8-35.4); Mean Corpuscular Hemoglobin 30.5 pg (27.0-31.2); Mean Corpuscular Volume 89.3 fl (80-94); Mean Platelet Volume 7.3 fl (7.4-10.4); Monocytes # 0.3 K/mm3 (0.1-1.0); Monocytes % 5.4 % (1.7-9.3); Neutrophils # 3.2 K/mm3 (1.8-7.8); Neutrophils % 57.4 % (37.0-80.0); Platelet Count 229 K/mm3 (142-424); Red Blood Count 5.07 M/mm3 (4.60-6.20); Red Cell Distribution Width 15.1 % (11.5-17.5); White Blood Count 5.5 K/mm3 (4.8-10.8)
[2022-07-16 13:33] LABS: Alanine Aminotransferase 121 U/L (12-78); Albumin Level 4.6 g/dl (3.5-5.0); Alkaline Phosphatase 86 U/L (38-126); Aspartate Amino Transferase 72 U/L (17-59); Bilirubin,Direct 0.2 mg/dl (0.0-0.4); Bilirubin,Indirect 0.9 mg/dL (0.0-0.9); Bilirubin,Total 1.1 mg/dl (0.2-1.3); Bilirubin,Unconjugated 0.9 mg/dL (0.0-1.1); Blood Urea Nitrogen 5 mg/dl (9-20); Creatine Kinase 53 U/L (55-170); Creatinine Clearance Estimated 154 mL/min (50-200); Estimated Glomerular Filt Rate 100 ml/min (>60); GFR (African American) 121 ML/MIN (>60); Total Protein,Serum 7.3 g/dl (6.3-8.2)
[2022-07-16 13:39] LABS: C-Reactive Protein 4.6 mg/L (0-4)
[2022-07-16 13:45] VITALS: BP 113/73; PULSE 81; RESP 18; TEMP 36.4; O2SAT 98
[2022-07-16 14:20] VITALS: BP 118/69; PULSE 76; RESP 18; O2SAT 98
== END 2022-07-16 14:25 | disposition home or self-care (01) ==
LOC: INF 12:56
PROVIDERS: PCP Emergency Medicine; Visit Provider Orthopaedic Surgery
DX: S52.252 Displaced comminuted fracture of shaft of ulna, left arm (principal)
CPT/HCPCS: 80076; 82550; 82565; 84520; 85025; 86140; 96365; 96367; J0878; J1335

== ENCOUNTER 2022-07-17 13:14 | Outpatient (CLI) | payer BC, SELFPAY ==
[2022-07-17 13:37] VITALS: BP 146/97; PULSE 86; RESP 18; TEMP 36.4; O2SAT 100
[2022-07-17 14:10] VITALS: BP 151/91; PULSE 84; RESP 18; O2SAT 99
== END 2022-07-17 14:15 | disposition home or self-care (01) ==
LOC: INF 13:14
PROVIDERS: PCP Emergency Medicine; Visit Provider Orthopaedic Surgery
DX: S52.252 Displaced comminuted fracture of shaft of ulna, left arm (principal)
CPT/HCPCS: 96365; 96367; J0878; J1335

== ENCOUNTER 2022-07-18 11:30 | Outpatient (CLI) | payer BC, SELFPAY ==
[2022-07-18 11:57] VITALS: BP 143/91; PULSE 90; RESP 18; TEMP 36.3; O2SAT 99
[2022-07-18 12:35] VITALS: BP 137/92; PULSE 89; RESP 18; O2SAT 99
== END 2022-07-18 12:35 | disposition home or self-care (01) ==
LOC: INF 11:30
PROVIDERS: PCP Emergency Medicine; Visit Provider Orthopaedic Surgery
DX: S52.252 Displaced comminuted fracture of shaft of ulna, left arm (principal)
CPT/HCPCS: 96365; 96367; J0878; J1335

== ENCOUNTER 2022-07-19 11:01 | Outpatient (CLI) | payer BC, SELFPAY ==
[2022-07-19 11:05] VITALS: BMI 33.3
[2022-07-19 11:30] VITALS: BP 139/77; PULSE 87; RESP 18; O2SAT 96
[2022-07-19 11:34] LABS: Bilirubin,Unconjugated 1.2 mg/dL (0.0-1.1); Blood Urea Nitrogen 7 mg/dl (9-20); Creatinine Clearance Estimated 136 mL/min (50-200); Estimated Glomerular Filt Rate 87 ml/min (>60); GFR (African American) 106 ML/MIN (>60)
[2022-07-19 11:35] LABS: Alanine Aminotransferase 111 U/L (12-78); Albumin Level 4.2 g/dl (3.5-5.0); Alkaline Phosphatase 74 U/L (38-126); Aspartate Amino Transferase 59 U/L (17-59); Bilirubin,Direct 0.2 mg/dl (0.0-0.4); Bilirubin,Indirect 1.1 mg/dL (0.0-0.9); Bilirubin,Total 1.3 mg/dl (0.2-1.3); Total Protein,Serum 6.9 g/dl (6.3-8.2)
[2022-07-19 12:10] VITALS: BP 127/79; PULSE 76; RESP 18
== END 2022-07-19 12:10 | disposition home or self-care (01) ==
LOC: INF 11:01
PROVIDERS: PCP Emergency Medicine; Visit Provider Orthopaedic Surgery
DX: S52.252 Displaced comminuted fracture of shaft of ulna, left arm (principal)
CPT/HCPCS: 80076; 82565; 84520; 96365; 96367; J0878; J1335

== ENCOUNTER 2022-07-20 10:33 | Outpatient (CLI) | payer BC, SELFPAY ==
[2022-07-20 11:04] VITALS: BP 109/77; PULSE 90; RESP 18; O2SAT 96
[2022-07-20 12:05] VITALS: BP 112/79; PULSE 89; RESP 18
== END 2022-07-20 12:05 | disposition home or self-care (01) ==
LOC: INF 10:34
PROVIDERS: PCP Emergency Medicine; Visit Provider Orthopaedic Surgery
DX: S52.252 Displaced comminuted fracture of shaft of ulna, left arm (principal)
CPT/HCPCS: 96365; 96367; J0878; J1335

== ENCOUNTER → 2022-07-21 13:21 | Outpatient (CLI) | payer BC, SELFPAY ==
[2022-07-21 14:59] VITALS: BP 126/84; PULSE 83; RESP 18; TEMP 36.7; O2SAT 97
[2022-07-21 15:10] VITALS: BP 131/82; PULSE 84; RESP 18; TEMP 37.1; O2SAT 98
== END ==
PROVIDERS: PCP Emergency Medicine; Visit Provider Orthopaedic Surgery
DX: S52.252 Displaced comminuted fracture of shaft of ulna, left arm (principal)
CPT/HCPCS: 96365; 96367; J0878; J1335

== ENCOUNTER → 2022-07-22 12:44 | Outpatient (CLI) | payer BC, SELFPAY | PROVIDERS: PCP Emergency Medicine; Visit Provider Orthopaedic Surgery | DX: S52.252 Displaced comminuted fracture of shaft of ulna, left arm (principal) | CPT/HCPCS: 96365; 96367; J0878; J1335 ==

== ENCOUNTER 2022-07-23 11:26 | Outpatient (CLI) | payer BC, SELFPAY ==
[2022-07-23 11:31] VITALS: BMI 33.4
[2022-07-23 11:46] LABS: Basophils # 0.1 K/mm3 (0-0.2); Basophils % 1.3 % (0.1-2.0); Eosinophils # 0.1 K/mm3 (0.0-0.4); Eosinophils % 1.5 % (0.1-12.0); Hematocrit 43.8 % (42.0-52.0); Hemoglobin 15.2 g/dL (14.1-18.0); Lymphocytes % 37.6 % (10-50); Mean Corpuscular HGB Conc 34.8 g/dL (31.8-35.4); Mean Corpuscular Hemoglobin 30.3 pg (27.0-31.2); Mean Corpuscular Volume 87.2 fl (80-94); Mean Platelet Volume 7.3 fl (7.4-10.4); Monocytes # 0.3 K/mm3 (0.1-1.0); Monocytes % 4.7 % (1.7-9.3); Neutrophils # 2.9 K/mm3 (1.8-7.8); Neutrophils % 54.8 % (37.0-80.0); Platelet Count 203 K/mm3 (142-424); Red Blood Count 5.02 M/mm3 (4.60-6.20); White Blood Count 5.4 K/mm3 (4.8-10.8)
[2022-07-23 11:52] VITALS: BP 130/90; PULSE 83; RESP 18; O2SAT 99
[2022-07-23 11:53] LABS: Alanine Aminotransferase 119 U/L (12-78); Alkaline Phosphatase 73 U/L (38-126); Aspartate Amino Transferase 68 U/L (17-59); Bilirubin,Direct 0.1 mg/dl (0.0-0.4); Bilirubin,Indirect 1.4 mg/dL (0.0-0.9); Bilirubin,Total 1.5 mg/dl (0.2-1.3); Bilirubin,Unconjugated 1.4 mg/dL (0.0-1.1); Blood Urea Nitrogen 5 mg/dl (9-20); Creatinine Clearance Estimated 154 mL/min (50-200); Estimated Glomerular Filt Rate 100 ml/min (>60); GFR (African American) 121 ML/MIN (>60)
[2022-07-23 11:54] LABS: Albumin Level 4.5 g/dl (3.5-5.0); Creatine Kinase 54 U/L (55-170); Total Protein,Serum 7.2 g/dl (6.3-8.2)
[2022-07-23 12:00] LABS: C-Reactive Protein 4.3 mg/L (0-4)
[2022-07-23 12:33] VITALS: BP 134/88; PULSE 81; RESP 18; O2SAT 99
== END 2022-07-23 12:33 | disposition home or self-care (01) ==
LOC: INF 11:26
PROVIDERS: PCP Emergency Medicine; Visit Provider Orthopaedic Surgery
DX: S52.252 Displaced comminuted fracture of shaft of ulna, left arm (principal)
CPT/HCPCS: 80076; 82550; 82565; 84520; 85025; 86140; 96365; 96367; G0463; J0878; J1335

== ENCOUNTER 2022-08-07 12:50 | Outpatient (CLI) | payer BC, SELFPAY ==
[2022-08-07 12:53] VITALS: BMI 32.0
[2022-08-07 13:14] LABS: Basophils # 0.1 K/mm3 (0-0.2); Eosinophils # 0.1 K/mm3 (0.0-0.4); Hematocrit 45.1 % (42.0-52.0); Hemoglobin 15.3 g/dL (14.1-18.0); Lymphocytes % 38.8 % (10-50); Mean Corpuscular HGB Conc 33.9 g/dL (31.8-35.4); Mean Corpuscular Volume 88.4 fl (80-94); Mean Platelet Volume 7.8 fl (7.4-10.4); Monocytes # 0.2 K/mm3 (0.1-1.0); Monocytes % 2.9 % (1.7-9.3); Neutrophils # 2.9 K/mm3 (1.8-7.8); Neutrophils % 56.4 % (37.0-80.0); Platelet Count 200 K/mm3 (142-424); Red Cell Distribution Width 14.9 % (11.5-17.5); White Blood Count 5.1 K/mm3 (4.8-10.8)
[2022-08-07 13:20] LABS: Chloride 107 mmol/L (98-107)
[2022-08-07 13:21] LABS: Potassium 3.7 mmoL/L (3.5-5.1); Sodium 141 mmol/L (136-145)
[2022-08-07 13:23] LABS: Alanine Aminotransferase 76 U/L (12-78); Albumin Level 4.2 g/dl (3.5-5.0); Albumin/Globulin Ratio 1.6 (1.1-1.8); Alkaline Phosphatase 61 U/L (38-126); Anion Gap 9.7 mEq/L (5-15); Aspartate Amino Transferase 59 U/L (17-59); Bilirubin,Total 1.5 mg/dl (0.2-1.3); Blood Urea Nitrogen 6 mg/dl (9-20); Carbon Dioxide 28 mmol/L (22.0-30.0); Creatinine Clearance Estimated 131 mL/min (50-200); Estimated Glomerular Filt Rate 87 ml/min (>60); GFR (African American) 106 ML/MIN (>60); Globulin 2.6 g/dL (1.3-3.2); Total Protein,Serum 6.8 g/dl (6.3-8.2)
[2022-08-07 13:24] LABS: Calcium 8.7 mg/dl (8.4-10.2); Glucose 197 mg/dl (74-100)
[2022-08-07 13:30] LABS: C-Reactive Protein 3.7 mg/L (0-4)
== END 2022-08-07 13:05 | disposition home or self-care (01) ==
PROVIDERS: PCP Emergency Medicine; Visit Provider Internal Medicine Infectious Disease
DX: S52.252 Displaced comminuted fracture of shaft of ulna, left arm (principal); M86.9 Osteomyelitis, unspecified; R79.89 Other specified abnormal findings of blood chemistry
CPT/HCPCS: 36415; 80053; 85025; 86140

== ENCOUNTER → 2022-08-08 09:05 | Outpatient (CLI) | payer BC, SELFPAY ==
[2022-08-08 16:24] LABS: Amphetamine/Metha Screen,Urine Negative ng/ml (<1000); Barbiturates Screen,Urine Negative ng/ml (<200); Benzodiazepines Screen,Urine Negative ng/ml (<200); Cannabinoid Screen,Urine Negative ng/ml (<50); Cocaine Screen,Urine Negative ng/ml (<300); Methadone Screen,Urine Negative ng/ml (<300); Opiate Screen,Urine Positive ng/ml (<300); Phencyclidine Screen,Urine Negative ng/ml (<25)
== END ==
PROVIDERS: PCP Emergency Medicine; Visit Provider Emergency Medicine
DX: Z79.899 Other long term (current) drug therapy (principal)
CPT/HCPCS: 80305

== ENCOUNTER 2022-09-17 11:00 | Outpatient (RCR) | payer BC, SELFPAY | END 2022-09-17 11:05 | disposition home or self-care (01) | LOC: OT 11:00 | PROVIDERS: PCP Emergency Medicine; Visit Provider Orthopaedic Surgery | DX: M25.511 Pain in right shoulder (principal); Z98.890 Other specified postprocedural states; M75.101 Unspecified rotator cuff tear or rupture of right shoulder, not specified as traumatic | CPT/HCPCS: 97110; 97140; 97164; 97166 ==

== ENCOUNTER → 2022-10-03 10:15 | Outpatient (CLI) | payer BC, SELFPAY ==
[2022-10-03 18:24] LABS: Amphetamine/Metha Screen,Urine Negative ng/ml (<1000); Barbiturates Screen,Urine Negative ng/ml (<200)
[2022-10-03 18:25] LABS: Benzodiazepines Screen,Urine Negative ng/ml (<200); Cannabinoid Screen,Urine Negative ng/ml (<50)
[2022-10-03 18:26] LABS: Cocaine Screen,Urine Negative ng/ml (<300)
[2022-10-03 18:27] LABS: Methadone Screen,Urine Negative ng/ml (<300); Opiate Screen,Urine Negative ng/ml (<300)
[2022-10-03 18:28] LABS: Phencyclidine Screen,Urine Negative ng/ml (<25)
== END ==
PROVIDERS: PCP Emergency Medicine; Visit Provider Emergency Medicine
DX: G89.29 Other chronic pain (principal)
CPT/HCPCS: 80305

== ENCOUNTER → 2022-11-27 13:50 | Outpatient (CLI) | payer BC, SELFPAY ==
[2022-11-27 19:17] LABS: Amphetamine/Metha Screen,Urine Negative ng/ml (<1000); Barbiturates Screen,Urine Negative ng/ml (<200)
[2022-11-27 19:18] LABS: Benzodiazepines Screen,Urine Negative ng/ml (<200); Cannabinoid Screen,Urine Negative ng/ml (<50)
[2022-11-27 19:19] LABS: Cocaine Screen,Urine Negative ng/ml (<300)
[2022-11-27 19:20] LABS: Methadone Screen,Urine Negative ng/ml (<300); Opiate Screen,Urine Positive ng/ml (<300)
[2022-11-27 19:21] LABS: Phencyclidine Screen,Urine Negative ng/ml (<25)
== END ==
PROVIDERS: PCP Emergency Medicine; Visit Provider Emergency Medicine
DX: Z79.899 Other long term (current) drug therapy (principal)
CPT/HCPCS: 80305

== ENCOUNTER → 2023-01-23 23:33 | Outpatient (CLI) | payer BC, SELFPAY ==
[2023-01-23 20:35] LABS: Phencyclidine Screen,Urine Negative ng/ml (<25)
[2023-01-23 20:42] LABS: Amphetamine/Metha Screen,Urine Negative ng/ml (<1000); Barbiturates Screen,Urine Negative ng/ml (<200)
[2023-01-23 20:43] LABS: Benzodiazepines Screen,Urine Negative ng/ml (<200); Cannabinoid Screen,Urine Negative ng/ml (<50)
[2023-01-23 20:46] LABS: Opiate Screen,Urine Negative ng/ml (<300)
[2023-01-23 20:47] LABS: Cocaine Screen,Urine Negative ng/ml (<300); Methadone Screen,Urine Negative ng/ml (<300)
== END ==
PROVIDERS: PCP Emergency Medicine; Visit Provider Emergency Medicine
DX: Z79.899 Other long term (current) drug therapy (principal)
CPT/HCPCS: 80305

== ENCOUNTER → 2023-03-20 03:23 | Outpatient (CLI) | payer BC, SELFPAY ==
[2023-03-20 21:00] LABS: Amphetamine/Metha Screen,Urine Negative ng/ml (<1000)
[2023-03-20 21:01] LABS: Barbiturates Screen,Urine Negative ng/ml (<200)
[2023-03-20 21:02] LABS: Benzodiazepines Screen,Urine Negative ng/ml (<200); Cannabinoid Screen,Urine Negative ng/ml (<50)
[2023-03-20 21:04] LABS: Cocaine Screen,Urine Negative ng/ml (<300); Methadone Screen,Urine Negative ng/ml (<300)
[2023-03-20 21:05] LABS: Opiate Screen,Urine Negative ng/ml (<300); Phencyclidine Screen,Urine Negative ng/ml (<25)
== END ==
PROVIDERS: PCP Emergency Medicine; Visit Provider Emergency Medicine
DX: Z79.899 Other long term (current) drug therapy (principal)
CPT/HCPCS: 80305

== ENCOUNTER → 2023-04-12 14:55 | Outpatient (CLI) | payer BC, SELFPAY ==
[2023-04-12 15:18] LABS: Basophils % 0.3 % (0.1-2.0); Eosinophils # 0.1 K/mm3 (0.0-0.4); Hematocrit 45.1 % (42.0-52.0); Hemoglobin 16.1 g/dL (14.1-18.0); Lymphocytes # 2.3 K/mm3 (0.7-4.5); Lymphocytes % 35.5 % (10-50); Mean Corpuscular HGB Conc 35.6 g/dL (31.8-35.4); Mean Corpuscular Hemoglobin 31.5 pg (27.0-31.2); Mean Corpuscular Volume 88.4 fl (80-94); Mean Platelet Volume 7.3 fl (7.4-10.4); Monocytes # 0.3 K/mm3 (0.1-1.0); Monocytes % 4.5 % (1.7-9.3); Neutrophils # 3.7 K/mm3 (1.8-7.8); Neutrophils % 58.6 % (37.0-80.0); Platelet Count 189 K/mm3 (142-424); Red Cell Distribution Width 14.7 % (11.5-17.5); White Blood Count 6.4 K/mm3 (4.8-10.8)
[2023-04-12 15:48] LABS: Chloride 108 mmol/L (98-107); Sodium 140 mmol/L (136-145)
[2023-04-12 15:51] LABS: Blood Urea Nitrogen 10 mg/dl (9-20); Calcium 9.4 mg/dl (8.4-10.2); Carbon Dioxide 21 mmol/L (22.0-30.0); Estimated Glomerular Filt Rate 100 ml/min (>60); GFR (African American) 121 ML/MIN (>60); Glucose 77 mg/dl (74-100)
== END ==
PROVIDERS: PCP Emergency Medicine; Visit Provider Surgery
DX: L72.3 Sebaceous cyst (principal)
CPT/HCPCS: 36415; 80048; 85025

== ENCOUNTER 2023-04-15 09:35 | Day surgery (SDC) | payer BC, SELFPAY ==
[2023-04-12 11:35] VITALS: BMI 34.4
[2023-04-15 10:19] VITALS: BP 144/84; PULSE 62; RESP 18; TEMP 36.2; O2SAT 97
--- NOTE | 2023-04-15 10:51 | P.PNANES_ITS ---
[facility] Disclaimer: The information contained in this section may have been updated after the patient was seen, as this information can be updated by other users. Medical History Degenerative disc disease Hyperlipidemia Tobacco abuse Surgical History History of colonoscopy History of surgery on arm Hx of shoulder surgery Family History Other Family history of cancer Family history of diabetes mellitus type II Family history of hyperlipidemia Family history of myocardial infarction Lung cancer No significant family history Social History Smoking Status: Current every day smoker tobacco type: cigarettes packs per day: 1 alcohol intake: never substance use type: denies use current occupational status: disabled Travel in the last 8 weeks: None household members: none housing: house 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 current occupational exposures/hazards: No caffeine: Yes [facility] Anesthesia Checklist Patient Identification Patient Identification: Arm Band, Family and Verbal (Name & ) Structural Data Admitted From: Home Planned Operative Procedure/s: Excision of sebaceous cyst on back Verified Documents: Surgical Consent and History and Physical NPO Status Verified Time NPO: 00:00 Chart Verification Results Verified: CBC and BMP Additional verifications Patient : No Anesthesia Reactions: No Hx Blood Transfusions: No Blood Transfusion Reaction: No Cephalosporin Allergy: No Cardiovascular Assessment Heart Sounds: S1 & S2 Pulse Rhythm: Irregular Peripheral Edema: No Airway Assessment Mallampati Score:: Class II C-Spine Mobility Assessed: Yes TMJ Mobility Assessed: Yes Dentition: Edentulous Neurological Assessment Level of Consciousness: Awake, Alert and Appropriate Hx Seizures: No Numbness or tingling in extremities: No Anesthesia Plan Anesthesia Risk discussed: Yes Anesthesia Plan: Verified ASA Class: III Anesthesia Type: MAC
--- NOTE | 2023-04-15 12:02 | EXP.OP.NOTE ---
Date of procedure: 04/15/23 Pre-op Diagnosis:: Sebaceous cyst on the back Post-op Diagnosis:: Same Procedure performed:: Excision of epidermal inclusion (sebaceous) cyst from the back with intermediate complexity closure, 3.0 cm Surgeon:: Julio Dalton MD MOLD POLISHER:: Kerri Cárdenas Anesthesia: MAC and local Estimated blood loss (mL): 5 Operative findings:: Consistent with inflamed previously ruptured noninfected sebaceous cyst Operative note:: Consent was obtained patient was taken the operating room. He was given preoperative intravenous antibiotic. In the operating room he was placed in a supine position. Adequate intravenous sedation was achieved. He was positioned in the left lateral position. The area was prepped and draped in the standard surgical fashion. Skin was marked with a skin marker for planned elliptical incision. Local anesthetic was infiltrated superficially and then deeply. Dissection was carried down carefully using sharp dissection down to the underlying subcutaneous tissues. There was somewhat of an ill-defined inclusion cyst consistent with previously ruptured noninfected inclusion cyst. Using sharp scissor dissection this was dissected free from the surrounding subcutaneous tissues with the overlying skin ellipse. It was sent off as a specimen. Subcutaneous tissues were irrigated. Hemostasis was achieved with electrocautery. Deep dermal tissues were reapproximated with several interrupted 2-0 Vicryl. Skin was closed with interrupted 3-0 nylon. Clean dry sterile dressing was applied. Condition: stable Disposition: PACU Complications:: None immediately apparent
[2023-04-15 12:05] VITALS: BP 90/53; PULSE 60; RESP 18; TEMP 36.1; O2SAT 94
[2023-04-15 12:15] VITALS: BP 104/56; PULSE 55; RESP 18; O2SAT 95
[2023-04-15 12:25] VITALS: BP 123/75; PULSE 56; RESP 18; O2SAT 97
--- NOTE | 2023-04-15 12:27 | SUR.PHASEII ---
1205-Pt arrived to post op with oral airway and simple mask on 3 liters.
[2023-04-15 12:35] VITALS: BP 130/89; PULSE 57; RESP 18; O2SAT 94
== END 2023-04-15 12:46 | disposition home or self-care (01) ==
PROVIDERS: PCP Emergency Medicine; Visit Provider Surgery
PROC: (CPT 11403; principal; 2023-04-15 11:15)
DX: L72.0 Epidermal cyst (principal)
CPT/HCPCS: 11403; 12032

== ENCOUNTER → 2023-05-17 14:58 | Outpatient (CLI) | payer BC, SELFPAY ==
[2023-05-17 20:56] LABS: Amphetamine/Metha Screen,Urine Negative ng/ml (<1000)
[2023-05-17 20:57] LABS: Barbiturates Screen,Urine Negative ng/ml (<200); Benzodiazepines Screen,Urine Negative ng/ml (<200)
[2023-05-17 20:58] LABS: Cannabinoid Screen,Urine Negative ng/ml (<50)
[2023-05-17 20:59] LABS: Cocaine Screen,Urine Negative ng/ml (<300); Methadone Screen,Urine Negative ng/ml (<300)
[2023-05-17 21:00] LABS: Opiate Screen,Urine Positive ng/ml (<300)
[2023-05-17 21:01] LABS: Phencyclidine Screen,Urine Negative ng/ml (<25)
== END ==
PROVIDERS: PCP Emergency Medicine; Visit Provider Emergency Medicine
DX: M79.2 Neuralgia and neuritis, unspecified (principal); Z72.0 Tobacco use
CPT/HCPCS: 80305

== ENCOUNTER 2023-07-16 11:55 | Outpatient (CLI) | payer BC, SELFPAY ==
[2023-07-16 14:40] LABS: Amphetamine/Metha Screen,Urine Negative ng/ml (<1000)
[2023-07-16 14:42] LABS: Barbiturates Screen,Urine Negative ng/ml (<200); Benzodiazepines Screen,Urine Negative ng/ml (<200)
[2023-07-16 14:43] LABS: Cocaine Screen,Urine Negative ng/ml (<300)
[2023-07-16 14:44] LABS: Cannabinoid Screen,Urine Negative ng/ml (<50); Methadone Screen,Urine Negative ng/ml (<300)
[2023-07-16 14:45] LABS: Opiate Screen,Urine Negative ng/ml (<300)
[2023-07-16 14:46] LABS: Phencyclidine Screen,Urine Negative ng/ml (<25)
[2023-07-20 08:35] LABS: Gabapentin,Urine Negative (.)
[2023-07-20 12:41] LABS: Oxycodone Positive (.); Oxycodone Confirm >3000 ng/mL (Cutoff=100); Oxymorphone Positive (.); Oxymorphone Confirm 1884 ng/mL (Cutoff=100)
== END 2023-07-16 23:59 ==
LOC: LAB.DROPOF 11:55
PROVIDERS: PCP Nurse Practitioner Family; Visit Provider Nurse Practitioner Family
DX: M54.12 Radiculopathy, cervical region (principal); Z79.899 Other long term (current) drug therapy
CPT/HCPCS: 80307; 80365

== ENCOUNTER 2023-09-19 18:54 | Outpatient (CLI) | payer BC, SELFPAY ==
[2023-09-19 19:36] LABS: Chol/HDL Ratio 10.1 (1-3.5); Cholesterol 242 mg/dl (140-200); HDL Cholesterol 24 mg/dl (40-60); Triglycerides 271 mg/dl (30-150); VLDL Cholesterol 54 mg/dL (0-40)
[2023-09-19 19:49] LABS: Direct LDL Cholesterol 158.36 mg/dL (100-129)
[2023-09-19 20:07] LABS: Prostate Specific Ag Screen 0.5 ng/ml (0.0-4.0)
== END 2023-09-19 23:59 ==
LOC: LAB.DROPOF 18:54
PROVIDERS: Visit Provider Family Medicine
DX: E78.5 Hyperlipidemia, unspecified (principal); Z79.899 Other long term (current) drug therapy
CPT/HCPCS: 80061; 83036; G0103

== ENCOUNTER 2023-11-08 10:21 | Day surgery (SDC) | payer BC, SELFPAY ==
[2023-11-07 09:34] VITALS: BMI 29.9
[2023-11-08] VITALS (7 sets, daily range): BP systolic 89–144; BP diastolic 58–104; PULSE 53–68; RESP 18; TEMP 36.1; O2SAT 96–100
[2023-11-08] MEDS: LACTATED RINGERS 1000ML 1,000 ML 25 ML IV (10:55)
--- NOTE | 2023-11-08 11:55 | HMH.SCOPE ---
Procedure: Date: 11/08/23 Patient Date of :: 1965 Procedure Performed:: Total colonoscopy to terminal ileum with polypectomy using biopsy forceps Indications:: Patient is a 58-year-old male originally from [facility]. I had seen him relatively recently for excision of epidermal inclusion cyst. He had previously undergone colonoscopy on 03/22/2020 as initial screening colonoscopy. He was found to have a poor preparation. He did have a rectal tubular adenoma. Given his adenoma and poor prep recommendation was for repeat colonoscopy within 1 to 2 years after his initial screening colonoscopy on 03/22/2020. Patient had experienced significant trauma to his left upper extremity requiring numerous operations which she states delayed his return for colonoscopy. . Performing Provider:: Julio Dalton MD Referring Provider:: Lane Pandey Sedation:: MAC sedation Procedure:: Patient history was obtained and appropriate physical examination was performed. Patient's medications and allergies were reviewed. Informed consent was obtained after explaining the benefits, alternatives, and risks of the procedure including, but not limited to, bleeding, perforation, missed lesions, and adverse reaction to anesthesia medications. Patient was transported to endoscopy procedure room. Patient was connected to monitoring devices. Throughout the procedure the patient's blood pressure, pulse, and oxygen saturations were monitored continuously. Patient identification and planned procedure were verified by the staff. Patient was positioned in lateral decubitus position. Digital anorectal exam was performed. Variable stiffness Olympus colonoscope was inserted and advanced under direct visualization to the cecum. Adequacy of the colonic preparation was noted. The colonoscope was advanced a short distance into the terminal ileum. The colonoscope was then slowly withdrawn while carefully examining the color, texture, anatomy, and integrity of the mucosoa circumferentially. Within the rectum retroflexion was performed. Colonoscope was then withdrawn. . Impression: In the right colon there was some bilious liquid stool. This was unable to be completely cleared as it was somewhat adherent to the diaz of the colon. However, decent visualization was achieved. High-volume trans colonoscopic irrigation and suctioning was performed. There were a few diminutive rectosigmoid polyps. These were likely hyperplastic but 1 or 2 of these appeared to be potentially tiny adenomatous polyps. These were all removed with biopsy forceps. . Findings:: Bilious liquid stool mostly in the right colon and somewhat adherent to the diaz Diminutive hyperplastic appearing rectosigmoid polyps Recommendations:: Given preparation, prior history, and polyps, likely repeat colonoscopy 2 to 3 years pending pathology Complications:: None immediately apparent Estimated blood obtained (mL): 1 Colonoscopy Component Colonoscopy Component Was a colonoscopy performed during today's procedure?: Yes Recommended follow up colonoscopy of at least 10 years?: No If no, follow up colonoscopy recommended in ___ years?: 2-3 Reason for not recommending >/= 10 yr follow-up interval?: See above
--- NOTE | 2023-11-08 12:17 | EXP.ANES.CKL ---
[facility] Disclaimer: The information contained in this section may have been updated after the patient was seen, as this information can be updated by other users. Medical History Hyperlipidemia Tobacco abuse Degenerative disc disease Surgical History Hx of shoulder surgery right History of colonoscopy History of surgery on arm x11 left Family History Other Family history of cancer Family history of diabetes mellitus type II Family history of hyperlipidemia Family history of myocardial infarction Lung cancer No significant family history Social History Smoking Status: Current every day smoker tobacco type: cigarettes packs per day: 1 alcohol intake: never substance use type: denies use current occupational status: disabled Travel in the last 8 weeks: None household members: none housing: house 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 current occupational exposures/hazards: No caffeine: Yes [facility] Anesthesia Checklist Patient Identification Patient Identification: Arm Band Structural Data Admitted From: Home Planned Operative Procedure/s: Colonoscopy Consent for Planned Operative Procedure(s) Verified: Yes Verified Documents: Surgical Consent and History and Physical NPO Status Verified Time NPO: 00:00 Additional verifications Anesthesia Reactions: No Hx Blood Transfusions: No Blood Transfusion Reaction: No Airway Assessment Mallampati Score:: Class II C-Spine Mobility Assessed: Yes TMJ Mobility Assessed: Yes Dentition: Edentulous Neurological Assessment Level of Consciousness: Awake, Alert and Appropriate Anesthesia Plan Anesthesia Risk discussed: Yes Anesthesia Plan: Verified ASA Class: III Anesthesia Type: MAC
== END 2023-11-08 14:06 | disposition home or self-care (01) ==
PROVIDERS: PCP Internal Medicine; Visit Provider Surgery
PROC: 0DJD8ZZ Inspection of Lower Intestinal Tract, Via Natural or Artificial Opening Endoscopic (ICD-10-PCS; CPT 45380; principal; 2023-11-08 11:30)
DX: Z86.010 Personal history of colon polyps (principal); Z12.11 Encounter for screening for malignant neoplasm of colon; K63.5 Polyp of colon; R19.7 Diarrhea, unspecified
CPT/HCPCS: 45380

== ENCOUNTER 2024-02-12 19:12 | Outpatient (CLI) | payer BC, SELFPAY ==
[2024-02-12 20:14] LABS: Alanine Aminotransferase 31 U/L (12-78); Albumin Level 3.9 g/dl (3.5-5.0); Albumin/Globulin Ratio 1.6 (1.1-1.8); Alkaline Phosphatase 59 U/L (38-126); Anion Gap 13.9 mEq/L (5-15); Aspartate Amino Transferase 31 U/L (17-59); Blood Urea Nitrogen 16 mg/dl (9-20); Calcium 8.9 mg/dl (8.4-10.2); Carbon Dioxide 23 mmol/L (22.0-30.0); Chloride 105 mmol/L (98-107); Cholesterol 110 mg/dl (140-200); Estimated Glomerular Filt Rate 62 ml/min (>60); GFR (African American) 75 ML/MIN (>60); Globulin 2.5 g/dL (1.3-3.2); Glucose 168 mg/dl (74-100); HDL Cholesterol 22 mg/dl (40-60); Potassium 3.9 mmoL/L (3.5-5.1); Sodium 138 mmol/L (136-145); Total Protein,Serum 6.4 g/dl (6.3-8.2); Triglycerides 148 mg/dl (30-150); VLDL Cholesterol 30 mg/dL (0-40)
[2024-02-12 20:25] LABS: Direct LDL Cholesterol 61.37 mg/dL (100-129)
[2024-02-12 21:03] LABS: Vitamin B12 258 pg/mL (239-931)
== END 2024-02-12 23:59 | disposition home or self-care (01) ==
LOC: LAB.DROPOF 19:14
PROVIDERS: PCP Family Medicine; Visit Provider Family Medicine
DX: Z00.00 Encounter for general adult medical examination without abnormal findings (principal); E53.8 Deficiency of other specified B group vitamins
CPT/HCPCS: 80053; 80061; 82607

== ENCOUNTER 2024-04-01 08:00 | Outpatient (RCR) | payer BC, SELFPAY ==
--- NOTE | 2024-02-24 11:26 | HMH.PTOPEV ---
PT Outpatient Evaluation Rehab PT Outpatient Evaluation Start: 02/24/24 11:09 Freq: Status: Active Protocol: Document 02/24/24 11:09 WILTON (Rec: 02/24/24 11:26 WILTON [id number]) E-signed By Lit Rubio, PT Outpatient Therapy Subjective History Subjective History This is the initial PT eval for Larry Jara, 58 yowm who presents with acute on chronic low back pain x ~ 1 mo . He reports, I got dehydrated and my kidneys were hurting, but after they got my kidneys working right again , my back still hurts. 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 He reports no radicular symptoms currently. He has PMH of DDD and HTN. He also reports he takes prescription meds for his chronic low back pain, which do help his symptoms. New diagnosis of cancer in past 12 No months? Chief Complaint Pain Symptom Type Ache Symptoms Aggravated By Physical Activity Prior Functional Limitations None Current Functional Limitations Lifting,Bending/Stooping Level of pain today (0-10) 3 Pain scale - at its worst (0-10) 8 Lumbopelvic Eval Palapation tenderness bilateral lumbar spinal tenderness Yes: 2/4 L3/4 through L5/S1 Accessory Movement L-spine Vertebrae Accessory Movements Central P/A Hana that Elicit Symptoms L4 bilateral L5 bilateral S1 bilateral Range of Motion Lumbar Spine Active Flexion Range of 0-50 Motion (degrees) Lumbar Spine Active Extension Range of 0-10 Motion (degrees) Left Lumbar Spine Lateral Flexion Active 0-10 Range of Motion (degrees) Right Lumbar Spine Lateral Flexion 0-10 Active Range of Motion (degrees) Manual Muscle Test Bilateral Knee Extension Strength Grade 5 Normal Knee Flexion Strength Grade 5 Normal Hip Flexion Strength Grade 5 Normal Hip Abduction Strength Grade 5 Normal Hip Adduction Strength Grade 5 Normal Extensor Hallucis Longus Strength Grade 5 Normal Ankle Dorsiflexion Strength Grade 5 Normal Gastronemius/Soleus Strength Grade 5 Normal Special Tests Hip Scouring (Quadrant) Test Negative Left,Negative Right Hip Zachery (ANDRÉS) Test Negative Left,Negative Right Hip Piriformis Test Negative Left,Negative Right Hip Bowstring (Cram) Test Negative Left,Negative Right Sciatic Nerve Tension Test Negative Left,Negative Right Unilateral Straight Leg Raise (Lasegue) Negative Left,Negative Right Test Lumbar Long Chauvin Distraction Test/Manual Negative Traction Oswestry Index Section 1 Pain Intensity The pain comes and goes and is moderate Section 2 Personal Care (Washing,Dresing) change my way of washing or dressing in order to avoid pain Section 3 Lifting lifting heavy weights off the floor, but I can manage if they are Section 4 Walking I cannot walk more than 1/2 mile without increasing pain Section 5 Sitting Pain prevents me from sitting for more than one hour Section 6 Standing I cannot stand more than 1 hour without increasing pain Section 7 Sleeping Because of my pain, my normal night's sleep is less than 6 hours sleep Section 8 Social Life My social life is normal but increases the degree of pain Section 9 Traveling I get some pain when traveling , but none of my usual forms of travel m Section 10 Changing Degreee of Pain My pain is gradually getting worse Score and Risk Level Oswestry Sc 20 Oswestry Risk Level Moderate Disability Outpatient Therapy Assessment Impairments Problems/Impairmments Palpation Tenderness,Impaired Range of Motion,Impaired Work Activities,Subjective C/O Pain ,Impaired Self Care/Self Management Prognosis Rehab Potential Good Comment Signs and symptoms consistent with exacerbation of chronic pain due to DDD and OA. Skilled therapy is indicated to improve patients spinal ROM , reduce pain, and return pt to PLOF. Clinical Impression Consistent with Diagnosis Yes Short Term Goals Number of Weeks 2 Decreased Palpation Tenderness Yes: 1/4 lumbar spine Increase Range of Motion Yes: Lumbar AROM by 5 deg all dir Improve Oswestry Score Yes: <18 Decrease Subjective C/O Pain Yes: 6/10 at worst low back Patient to be Ind w/ HEP Yes Detention Goals Number of Weeks 4 Decreased Palpation Tenderness Yes: 0/4 lumbar spine Increase Range of Motion Yes: Lumbar AROM by 10 deg all dir Improve Tolerance to Work Activities Yes: with <6/10 pain Improve Oswestry Score Yes: <16 Decrease Subjective C/O Pain Yes: 4/10 at worst in low back Patient to be Ind w/ Advanced HEP Yes Outpatient Therapy Plan of Care Treatment Plan May Include Therapeutic Exercise Including Home Yes Exercise Program Manual Therapy Techniques Yes Neuromuscular Re-education Yes Therapeutic Activities to Return to Yes Previous Functional/Work Level ADL/Self Care Education Yes Thermal Modalities Yes Electrical Stimulation Yes Ultrasound/Phonophoresis Yes Orthotics/Bracing/Splinting Yes Massage Yes Eval/Re-Eval Yes Frequency Times per week 1-2 Duration Number of Weeks 4 Addendums This patient is a candidate for social No or vocational rehab? Patient/Guardian verbally acknowledges Yes understanding of treatment program and consents to further treatment? Patient/Guardian verbally acknowledges Yes understanding of diagnosis, prognosis and goals for treatment? Eval Complexity PT Charges 79608 - High Complexity Shoulder/Elbow Eval Shoulder Objective Measurements Elbow Objective Measurements PHYSICIAN CERTIFICATION: I certify the specified therapy services for Larry Jara are required, authorized, and reviewed every 30 days.
--- NOTE | 2024-03-30 11:25 | HMH.RHREAS ---
Rehab Reassessment Rehab OP Re-assessment Start: 02/24/24 11:09 Freq: Status: Active Protocol: Document 03/30/24 11:21 [email or web address] (Rec: 03/30/24 11:25 PHORNE [id number]) E-signed By Lit Rubio, PT Oswestry Index Section 1 Pain Intensity The pain comes and goes and is moderate Section 2 Personal Care (Washing,Dresing) change my way of washing or dressing in order to avoid pain Section 3 Lifting lifting heavy weights off the floor, but I can manage light to medium Section 4 Walking I cannot walk more than 1/2 mile without increasing pain Section 5 Sitting Pain prevents me from sitting for more than 1/2 hour Section 6 Standing I cannot stand more than 1 hour without increasing pain Section 7 Sleeping I get pain in bed, but it does not prevent me from sleeping well Section 8 Social Life Pain has restricted my social life and I do not go out often Section 9 Traveling I get extra pain while traveling, but it does not compel me to seek al Section 10 Changing Degreee of Pain My pain fluctuates, but overall is definitely getting better Score and Risk Level Oswestry Sc 21 Oswestry Risk Level Moderate Disability Rehab Re-assessment Subjective Subjective Pt reports 3/10 pain in the back this am. This is pretty much how I always feel in the morning. He reports feeling 60% better since initial eval date. Objective Objective Notes Lumbar AROM (in deg): FLEX 0- 55, EXT 0-15, R SB 0-15, L SB 0-15. TTP: 1/4 throughout lumbar spinous process and paraspinals. Pain: currently 3/10. Assessment Progress Assessment Progressing as Expected Assessment Notes Pt has shown improvement in AROM of lumbar spine and less pain in general, but he continues to have increased pain with work activities. Skilled therapy remains necessary to improve lumbar ROM and core stability to return pt to PLOF. Patient goals met ST/5 LT/6 Plan Plan Continue per initial POC. Frequency of Therapy 1-2 x/wk Duration of therapy 4 wks Time and Billing Re-Eval Time 10 Re-Eval Billing Units 1 PHYSICIAN CERTIFICATION: I certify the specified therapy services for Larry Ron Jara are required, authorized, and reviewed every 30 days.
== END 2024-04-01 08:05 | disposition home or self-care (01) ==
LOC: PT 08:00
PROVIDERS: Visit Provider Family Medicine
DX: M54.9 Dorsalgia, unspecified (principal)
CPT/HCPCS: 97110; 97163; 97164

== ENCOUNTER 2024-05-07 13:49 | Outpatient (CLI) | payer BC, SELFPAY ==
--- NOTE | 2024-05-07 14:00 | XR_ITS ---
PROCEDURE INFORMATION: Exam: XR Thoracic Spine Exam date and time: 05/07/2024 2:07 PM Age: 58 years old Clinical indication: Pain in thoracic spine; Additional info: Back pain TECHNIQUE: Imaging protocol: Radiologic exam of the thoracic spine. Views: 2 views. COMPARISON: CR [id number] XR thoracic spine 3V 05/15/2018 10:11 AM FINDINGS: Bones/joints: Cervicothoracic junction is obscured by structure overlap. No acute fracture. Normal alignment. Soft tissues: Unremarkable. IMPRESSION: No acute findings.
--- NOTE | 2024-05-07 14:00 | XR_ITS ---
FINAL REPORT CLINICAL HISTORY: back pain, chronic COMPARISON: None FINDINGS: LUMBAR SPINE: AP and lateral views of the lumbar spine were obtained. There is no prior exam for comparison. There is no acute fracture or malalignment. Vertebral body height is preserved. Mild and moderate degenerative change is present, with facet arthropathy in the lower lumbar spine. No acute paraspinal abnormality. IMPRESSION: Mild and moderate degenerative change without acute bony abnormality. Reviewed, Interpreted and Dictated by Julio Rizzo III, MD Transcribed by Loretta Carrillo Authenticated and [facility]
== END 2024-05-07 23:59 | disposition home or self-care (01) ==
LOC: RAD 13:51
PROVIDERS: PCP Family Medicine; Visit Provider Family Medicine
DX: M54.9 Dorsalgia, unspecified (principal); M79.602 Pain in left arm; G89.29 Other chronic pain
CPT/HCPCS: 72070; 72100

== ENCOUNTER 2024-06-03 08:00 | Outpatient (RCR) | payer BC, SELFPAY ==
--- NOTE | 2024-05-18 09:28 | HMH.PTOPEV ---
PT Outpatient Evaluation Rehab PT Outpatient Evaluation Start: 05/18/24 08:51 Freq: Status: Active Protocol: Document 05/18/24 08:51 LEONARD (Rec: 05/18/24 09:28 LEONARD [id number]) E-signed By Eulalio De Anda, PT Outpatient Therapy Subjective History Subjective History Pt is a 58 year old male who presents to Physical Therapy with a 12 year history of LBP that began after he fell approximately 35 ft from a tree. The pt reports that he recently attended [facility] recently for PT and it helped a little but not much. He reports he missed many appointments. The pt reports that he still has the HEP from his last visits. The patient reports that his pain seems to be much worse on colder days. He also reports that he is hoping to get an MRI soon. He reports that he is prescribed OxyCodone that he takes as needed. New diagnosis of cancer in past 12 No months? Chief Complaint Pain,Spasms,Stiff Symptom Type Ache Symptoms Relieved By Rest/Positioning,Prescription Meds Symptoms Aggravated By Sitting,Physical Activity, Walking,Lifting Prior Functional Limitations None Current Functional Limitations Lifting,Housework,Dressing, Driving,Standing,Squatting, Walking Symptom Description Constant but Variable Level of pain today (0-10) 4 Pain scale - at its best (0-10) 2 Pain scale - at its worst (0-10) 8 Lumbopelvic Eval Posture Thoracic Spine Posture Standing Position Increased Kyphosis Lumbar Spine Posture Standing Position Flattened Assistive device Assistive Devices None / NA Gait Observation General Gait Pattern Observation No Deviations/Normal Palapation tenderness bilateral thoracic spinal tenderness Yes lumbar spinal tenderness Yes: L>R paraspinal tenderness Yes: L>R Lumbar/Sacral Palpation Findings Tenderness,Trigger Point Accessory Movement T10 bilateral T11 bilateral T12 bilateral L2 bilateral L3 bilateral Range of Motion Lumbar Spine Active Flexion Range of 50% Motion (degrees) Lumbar Spine Active Extension Range of 50% Motion (degrees) Left Lumbar Spine Lateral Flexion Active 50% Range of Motion (degrees) Right Lumbar Spine Lateral Flexion 50% Active Range of Motion (degrees) Lumbar Spine ROM Limitations Soft Tissue Tightness,Pain Manual Muscle Test Bilateral Knee Extension Strength Grade 3+ Fair+ Knee Flexion Strength Grade 4 Good Hip Flexion Strength Grade 4- Good- Hip Abduction Strength Grade 4- Good- Hip Extension Strength Grade 4- Good- DTR Rt Patellar 2+ Lt Patellar 2+ Rt Gastroc/Soleus 2+ Lt Gastroc/Soleus 2+ Special Tests Hip Sitting Root Test Negative Left,Negative Right Hip Scouring (Quadrant) Test Negative Left,Negative Right Hip Zachery (ANDRÉS) Test Negative Left,Negative Right Unilateral Straight Leg Raise (Lasegue) Negative Left,Negative Right Test Bilateral Straight Leg Raise Test Negative Hip Nancie's Test Negative Left,Negative Right Sacroiliac Joint Compression Test Negative Left,Negative Right Sacroiliac Joint Distraction Test Negative Left,Negative Right Oswestry Index Section 1 Pain Intensity The pain comes and goes and is moderate Section 2 Personal Care (Washing,Dresing) change my way of washing or dressing in order to avoid pain Section 3 Lifting I can lift heavy weights, but it gives me extra pain Section 4 Walking I cannot walk more than one mile wihtout increasing pain Section 5 Sitting Pain prevents me from sitting for more than one hour Section 6 Standing I cannot stand more than 1 hour without increasing pain Section 7 Sleeping I get pain in bed, but it does not prevent me from sleeping well Section 8 Social Life Pain has no significant effect on my social life apart from limiting Section 9 Traveling I get extra pain while traveling, but it does not compel me to seek al Section 10 Changing Degreee of Pain My pain is neither getting better or worse Score and Risk Level Oswestry Sc 17 Oswestry Risk Level Moderate Disability Miscellaneous Dx PT Eval Objective Objective Limitations with lumbar flexion PIVMs L>R PAs to L2-L4 Recreate comparable sign Outpatient Therapy Assessment Impairments Problems/Impairmments Palpation Tenderness,Impaired Range of Motion,Impaired Strength,Impaired Walking, Impaired Standing,Impaired Lifting,Impaired Squatting, Subjective C/O Pain Prognosis Rehab Potential Fair Clinical Impression Consistent with Diagnosis Yes Consistent with LBP with mobility deficits Short Term Goals Number of Weeks 4 Decreased Palpation Tenderness Yes: 1/4 to Lumbar Paraspinals Increase Range of Motion Yes: 75% WNL Increase Strength Yes: 4/5 to hip and knee BL Increase Ability to Sit Yes: 1 hour no pain Improve Oswestry Score Yes: to 10 Decrease Subjective C/O Pain Yes: 5/10 at worst Patient to be Ind w/ HEP Yes Bond Broker Goals Number of Weeks 8 Decreased Palpation Tenderness Yes: 0/4 to lumbar paraspinals Increase Range of Motion Yes: 100% WNL Increase Strength Yes: 5//5 hip and knee BL Increase Ability to Sit Yes: 2 hours no pain Improve Oswestry Score Yes: to 5 Decrease Subjective C/O Pain Yes: 2/10 at worst Patient to be Ind w/ Advanced HEP Yes Outpatient Therapy Plan of Care Treatment Plan May Include Therapeutic Exercise Including Home Yes Exercise Program Manual Therapy Techniques Yes Neuromuscular Re-education Yes Therapeutic Activities to Return to Yes Previous Functional/Work Level Gait Training Yes ADL/Self Care Education Yes Mechanical Traction Yes Dry Needling Yes Thermal Modalities Yes Electrical Stimulation Yes Eval/Re-Eval Yes Frequency Times per week 2 Duration Number of Weeks 8 Addendums This patient is a candidate for social No or vocational rehab? Patient/Guardian verbally acknowledges Yes understanding of treatment program and consents to further treatment? Patient/Guardian verbally acknowledges Yes understanding of diagnosis, prognosis and goals for treatment? Eval Complexity PT Charges 66168 - Moderate Complexity Shoulder/Elbow Eval Shoulder Objective Measurements Elbow Objective Measurements PHYSICIAN CERTIFICATION: I certify the specified therapy services for Larry Jara are required, authorized, and reviewed every 30 days.
== END 2024-06-03 23:59 | disposition home or self-care (01) ==
LOC: PT 08:00
PROVIDERS: PCP Family Medicine; Visit Provider Family Medicine
DX: M54.50 Low back pain, unspecified (principal)
CPT/HCPCS: 97110; 97140; 97163; 97530

== ENCOUNTER 2024-09-09 13:11 | Outpatient (CLI) | payer OTHER, SELFPAY ==
--- NOTE | 2024-09-09 13:22 | MR_ITS ---
FINAL REPORT CLINICAL HISTORY: chronic back pain FINDINGS: Multiplanar MR imaging of the thoracic spine was performed without and with contrast. On the sagittal T2-weighted images, there is abnormal decreased signal throughout the thoracic discs. The vertebrae are of normal height. There is no malalignment. The thoracic cord demonstrates normal signal and configuration. On the axial images, there is a tiny midline T8-9 disc protrusion with mild spinal canal compromise. On the postcontrast images, no abnormal contrast enhancement is identified. IMPRESSION: Tiny midline T8-9 disc protrusion with mild spinal canal compromise. No abnormal contrast enhancement identified. Reviewed, Interpreted and Dictated by Fortunato Jarrell MD Transcribed by Kanwal Ramos Authenticated and [facility]
--- NOTE | 2024-09-09 13:22 | MR_ITS ---
FINAL REPORT CLINICAL HISTORY: back pain chronic FINDINGS: Multiplanar MR imaging of the lumbar spine was performed without and with contrast. On the sagittal T2-weighted images, disc degeneration is seen at multiple levels. The vertebral alignment is normal. There is no evidence of fracture. L1-2: Small focal midline disc protrusion with mild spinal canal compromise. L2-3: Mild diffuse disc bulge with mild bilateral neuroforaminal narrowing. L3-4: Moderate diffuse disc bulge. Posterolateral disc protrusions with moderate to high-grade right and mild left neuroforaminal narrowing. L4-5: Moderate diffuse disc bulge and endplate hypertrophy. Moderate to high-grade bilateral neuroforaminal narrowing. L5-S1: Mild diffuse disc bulge with mild bilateral neuroforaminal narrowing. No abnormal contrast enhancement is identified. IMPRESSION: Focal midline disc protrusion at L1-2 with mild spinal canal compromise. Neuroforaminal compromise, most evident on the right at L3-4 and bilaterally at L4-5. Reviewed, Interpreted and Dictated by Fortunato Jarrell MD Transcribed by Kanwal Ramos Authenticated and . [facility]
[2024-09-09 13:40] LABS: Blood Urea Nitrogen 10 mg/dl (9-20); Estimated Glomerular Filt Rate 99 ml/min (>60); GFR (African American) 120 ML/MIN (>60)
[2024-09-09] MEDS: GADOTERIDOL INJ 20ML SYRINGE 20 ML IV (15:32)
== END 2024-09-09 23:59 | disposition home or self-care (01) ==
PROVIDERS: PCP Family Medicine; Visit Provider Family Medicine
DX: M51.360 Other intervertebral disc degeneration, lumbar region with discogenic back pain only (principal); M79.2 Neuralgia and neuritis, unspecified
CPT/HCPCS: 36415; 72157; 72158; 82565; 84520; A9576

== ENCOUNTER 2024-10-26 18:47 | Outpatient (CLI) | payer OTHER, SELFPAY ==
[2024-10-27 10:27] LABS: Basophils % 0.4 % (0.1-2.0); Eosinophils # 0.1 Kmm3 (0.0-0.4); Eosinophils % 1.3 % (0.1-12.0); Hematocrit 42.9 % (42.0-52.0); Hemoglobin 14.9 g/dL (14.1-18.0); Lymphocytes # 1.9 K/mm3 (0.7-4.5); Lymphocytes % 33.5 % (10-50); Mean Corpuscular HGB Conc 34.7 g/dL (31.8-35.4); Mean Corpuscular Hemoglobin 31.8 pg (27.0-31.2); Mean Corpuscular Volume 91.5 fl (80-94); Mean Platelet Volume 9.6 fl (7.4-10.4); Monocytes # 0.3 K/mm3 (0.1-1.0); Monocytes % 5.4 % (1.7-9.3); Neutrophils # 3.3 K/mm3 (1.8-7.8); Neutrophils % 59.2 % (37.0-80.0); Nucleated Red Blood Cells # 0 10^3/uL; Nucleated Red Blood Cells % 0 %; Platelet Count 170 K/mm3 (142-424); Red Blood Count 4.69 M/mm3 (4.60-6.20); Red Cell Distribution Width 13.9 % (11.5-17.5); Red Cell Distribution Width-SD 46.7 fL; White Blood Count 5.6 K/mm3 (4.8-10.8)
[2024-10-27 10:52] LABS: Alanine Aminotransferase 25 U/L (12-78); Albumin Level 3.8 g/dl (3.5-5.0); Albumin/Globulin Ratio 1.7 (1.1-1.8); Alkaline Phosphatase 56 U/L (38-126); Anion Gap 8.2 mEq/L (5-15); Aspartate Amino Transferase 25 U/L (17-59); Bilirubin,Total 1.9 mg/dl (0.2-1.3); Blood Urea Nitrogen 11 mg/dl (9-20); Carbon Dioxide 26 mmol/L (22.0-30.0); Chloride 110 mmol/L (98-107); Chol/HDL Ratio 7.2 (1-3.5); Cholesterol 151 mg/dl (140-200); Estimated Glomerular Filt Rate 99 ml/min (>60); GFR (African American) 120 ML/MIN (>60); Globulin 2.3 g/dL (1.3-3.2); Glucose 83 mg/dl (74-100); HDL Cholesterol 21 mg/dl (40-60); Potassium 4.2 mmoL/L (3.5-5.1); Sodium 140 mmol/L (136-145); Total Protein,Serum 6.1 g/dl (6.3-8.2); Triglycerides 166 mg/dl (30-150); VLDL Cholesterol 33 mg/dL (0-40)
[2024-10-27 11:05] LABS: Direct LDL Cholesterol 98.47 mg/dL (100-129)
[2024-10-27 11:06] LABS: 25-OH Vitamin D, Total 32.7 ng/mL (30-100)
[2024-10-27 11:22] LABS: Prostate Specific Ag Screen 0.4 ng/ml (0.0-4.0); Thyroid Stimulating Hormone 2.05 uIU/mL (0.465-4.68)
[2024-10-27 12:56] LABS: Hemoglobin A1C 4.7 % (4.0-6.0)
== END 2024-10-26 23:59 | disposition home or self-care (01) ==
LOC: LAB.DROPOF 18:48
PROVIDERS: PCP Family Medicine; Visit Provider Family Medicine
DX: Z12.5 Encounter for screening for malignant neoplasm of prostate (principal); E78.5 Hyperlipidemia, unspecified; E05.90 Thyrotoxicosis, unspecified without thyrotoxic crisis or storm; E55.9 Vitamin D deficiency, unspecified; E11.9 Type 2 diabetes mellitus without complications
CPT/HCPCS: 80053; 80061; 82306; 83036; 84443; 85025; G0103

== ENCOUNTER 2025-06-18 06:41 | Outpatient (CLI) | payer OTHER, SELFPAY ==
--- OUTSIDE RECORDS SUMMARY | 2025-06-18 06:44 | XMS_ITS | Encounter Summary ---
Author Organization Healthcare Address [address] [place] [address] Care Team Providers Care Store Clerk Checker Name Role Phone Zeyad Craig MD Primary Care Provider [phone] Encounter Details Date Type Department Care Team ([facility] st Contact Info) Description 09/09/2024 Orders Only External Location [address] [place] [id number] Provider, External Social History Tobacco Use Types Packs/Day Years Used Date Smoking Tobacco: Every Day Cigarettes 0.5 33 Smokeless Tobacco: Never Comments:now 1/2 ppd Alcohol Use Standard Drinks/Week Comments Not Currently 0 (1 standard drink = 0.6 oz pur e alcohol) PHQ-2 Answer Date Recorded Patient Health Questionnaire-2 Score 0 02/21/2023 CAGE ASSESSMENT Answer Date Recorded Cage unable to access Not on file 06/13/2022 Cage max number of drinks Not on file 2021 Cage Beverages a week Not on file 06/13/2022 Have you ever felt you should CUT down on your d rinking? 0 06/13/2022 Have you been ANNOYED by people criticizing your drinking? 0 06/13/2022 Have you felt GUILTY about your drinking? 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 0 06/13/2022 CAGE Questionnaire Score 0 022 PHQ-2A Answer Date Recorded Patient Health Questionnaire-2 Score 0 02/21/2023 Education Answer Date Recorded What is the highest level of school you have completed or the highest degree you have received? GED or equivalent 03/2021 Sex and Gender Information Value Date Recorded Sex Assigned at Male 03/21/2022 6:55 PM EDT Legal Sex Male 7:40 PM EDT Gender Identity Male 03/21/2022 6:55 PM EDT Sexual Orientation Straight 03/21/2022 6: 55 PM EDT documented as of this encounter Plan of Treatment Not on file documented as of this encounter Goals Goal Patient Goal Type Associated Problems Recent Progress Patient-Stated? Author Patient will verbalize understanding of orthotic wear , care and precautions. Occupational Therapy On track(2020 1:34 PM EDT) No Mayank Bingham patient goal: I want to use my arm again Occupational Therapy Yes Niyah Mims OT LTG 1 Impaired Function: Patient will decrease QUICK DASH score to < 20% by 03/01/21 Occupational Therapy No Niyah Mims OT STG 1 ROM: Patient will demonstrate ability to make a left composite fist by 01/25/21 Occupational Therapy Improving( 1:34 PM EDT) No Niyah Mims STG OT 2 ROM: Patient will be able to passive flex IPs into a hook fist position by 01/25/21 Occupational Therapy On track(2020 1:34 PM EDT) No Niyah Mims OT STG 3 ROM: Patient will demonstrate ability to extend L wrist using tendon transfer to 30 degrees by 01/25/21 Occupational Therapy Improving( 1:34 PM EDT) No Niyah Mims OT STG 4 ROM: Patient will increase left forearm supination and pronation by 20 degrees in each direction by 01/25/21 Occupational Therapy Improving( 1:34 PM EDT) No Niyah Mims documented as of this encounter Procedures Procedure Name Priority Date/Time Associated Diagnosis Comments MR THORACIC OUTSIDE IMAGES 09/09/2024 1:54 PM EDT documented in this encounter Results * MR THORACIC OUTSIDE IMAGES (09/09/2024 1:54 PM EDT) Anatomical Region Laterality Modality Magnetic Resonan ce 09/09/2024 1:54 PM EDT us External Provider IMG MRI PROCEDURES Final Resul t documented in this encounter Visit Diagnoses Not on filedocumented in this encounter Additional Health Concerns Infection Onset Date Last Indicated Resolved 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
--- OUTSIDE RECORDS SUMMARY | 2025-06-18 06:44 | XMS_ITS | Clinical Summary ---
Author Organization [facility] Address [address] [place] [address] Care Team Providers Care Oil And Gas Well Treatment Operator Name Role Phone Zeyad Craig MD Primary Care Provider + [phone] Allergies Active Allergy Reactions Criticality Noted Date Comments Morphine Anaphylaxis High 11/10/2020 Pseudoephedrine Other - please docum ent in the comment field Low 11/10/2020 Nosebleed Medications atorvastatin (Lipitor) 20 MG tablet Take 1 tablet (20 mg) by mouth 1 (one) time each day. Active gabapentin (Neurontin) 600 MG tablet TAKE 1 TABLET BY MOUTH 4 TIMES DAILY FOR 30 DAYS 02/14/20 22 Active oxyCODONE (Roxicodone) 5 MG immediate release tablet Take 1 tablet (5 mg) by mouth 2 (two) times a day. 01/22/20 22 Active acetaminophen (Tylenol) 325 MG tablet Take 650 mg by mouth every 6 (six) hours if needed. Active lisinopril 10 MG tablet Take 1 tablet (10 mg total) by mouth 1 (one) time each day. 30 tablet 06/20/20 22 Active doxycycline (Vibramycin) 100 MG capsule Take 1 capsule by mouth twice a day for 3 months as Suppressive therapy for arm infection 60 capsule 2 07/27/19 23 Active lisinopril 5 MG tablet Take 5 mg by mouth 1 (one) time each day. 10/04/19 23 Active sildenafil (Revatio) 20 MG tablet Take 1 tablet (20 mg) by mouth if needed. 09/22/19 23 Active gabapentin (Neurontin) 600 MG tabletIndications: Dorsalgia, unspecified,Other intervertebral disc degeneration, lumbar region without mention of lumbar back pain or lower extremity pain Take 1 tablet by mouth 3 (three) times a day. 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 05/16/2022 Overview (05/16/2022): Added automatically from request for surgery [id number] Traumatic complete tear of right rotator cuff Overview (02/21/2022): Added automatically from request for surgery [id number] Open wound of left elbow, fo rearm, and wrist with complication 03/29/2021 Overview (04/24/2021): sAdded automatically from request for surgery [id number] Infected orthopedic implant 02/15/2021 Overview (02/15/2021): Added automatically from request for surgery [id number] Chronic obstructive pulmonary disease 01/27/2021 High cholesterol 01/27/2021 Forearm fracture, left, open type III, with delayed healing, subsequent encounter 01/25/2021 Overview (01/25/2021): Added automatically from request for surgery [id number] Injury of tendon of extensor muscle at level of forearm 01/12/2021 Overview (01/12/2021): Added automatically from request for surgery [id number] Finger stiffness, left 12/28/2020 Stiffness of joint of left forearm 12/28/2020 Elbow stiffness, left 12/28/2020 Postoperative wound infection 12/09/2020 Wound infection after surgery 12/08/2020 Overview (12/08/2020): Added automatically from request for surgery [id number] Other injury of other extens or muscle, fascia and tendon at forearm level, left arm, subsequent encounter 12/07/2020 Assessment & Plan (12/28/2020 11:55 AM EDT): Relevant Hx: s/p Palmaris longus to EPL, FCR to EDC on left upper extremity 11/29/20 Course: Complicated by surgical site infection, dehiscence s/p exploration of wound, debridement on 12/09/20. Continues using twice daily WTD dressing changes to wounds, improvement in the interim. Today's Plan: Continue WTD dressing changes BID. Provided patient with supplies today Hand Therapy referral for active range of motion only Continue splint at all times except therapy or shower Continue PO Abx until complete (bactrim DS BID) BMP pending today RTC in [address] Bowman. Resolved Problems Problem Noted Date Diagnosed Date Resolved Date Edema of left upper extremity 12/28/2020 03/21/2025 Family History Medical History Relation Name Comments Cancer Mother Paz Sousa Heart disease Mother Paz Sousa Arthritis Sister Cinthya Kramer Anesthesia problems Neg Hx Malig Hyperthermia Neg Hx Relation Name Status Comments Mother Paz Sousa Alive Sister Cinthya Kramer Alive Social History Tobacco Use Types Packs/Day Years Used Date Smoking Tobacco: Every Day Cigarettes 0.5 33 Smokeless Tobacco: Never Tobacco Cessation:Ready to Q uit: Not Asked; Counseling Given: Not Answered Comments:now 1/2 ppd Alcohol Use Standard Drinks/Week [...] drink 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) to steady your nerves or to get [...] Orientation Straight 03/21/2022 6: 55 PM EDT Last Filed Vital Signs Vital Sign Reading Time Taken Comments Blood Pressure 134/88 10/16/2024 9:34 AM EDT Pulse 63 02/21/2023 10:03 AM EDT Temperature 36.4 C (97.5 F) 02/21/2023 10:03 AM EDT Respiratory Rate 18 07/10/2022 11:3 4 AM EST Oxygen Saturation 97% 02/21/2023 10: 03 AM EDT Inhaled Oxygen Concentration - - Weight 99.2 kg (218 lb 11.1 oz) 10/16/2024 9:34 AM EDT Height 177.8 cm (5' 10 ) 10/16/2024 9:34 AM EDT Body Mass Index 31.38 10/16/2024 9:34 AM EDT Plan of Treatment Health Maintenance Due Date Last Done Comments [facility]-/Child/Adol SDOH Screenings 1965 [facility]- SDOH Screenings 1983 [facility]-Adult SDOH Screenings 1983 [facility]-DTaP,Tdap,and Td Vaccines (1 - Tdap) 1984 [facility]-Hepatitis B Vaccines (1 of 3 - 19+ 3-dose series) 1984 CT Colonography 2010 Colonoscopy 2010 FIT-DNA 2010 FIT 2010 FOBT 2010 Sigmoidoscopy 2010 [facility]-Colorectal Cancer Screening 2010 [facility]-Zoster Vaccines (1 of 2) 2015 [facility]-Pneumococcal Vaccine: 50+ Years (2 of 2 - PCV) 07/06/2021 07/06/2020 [facility]-Depression Screening 02/22/2024 02/21/2023 [id number]-01 Vaccine (3 - 2024- season) 2025 02/14/2021, 01/24/2021 [facility]-Influenza Vaccine (#1) 2025 [facility]-HIV Screening Completed 12/13/2020 [facility]-Hepatitis C Screening Completed 12/13/2020 [facility]-Obesity Intervention Completed 025, 02/21/2023, 11/07/2022, Additional history exists HPV Vaccines (No Doses Required) Completed [facility]-HIB Vaccines Aged Out No longer e ligible based on patient's age to complete this topic [facility]-Hepatitis A Vaccines Aged Out No longer eligible based on patient's age to complete this topic [facility]-IPV Vaccines Aged Out No longer e ligible based on patient's age to complete this topic [facility]-Rotavirus Vaccines Aged Out No lo nger eligible based on patient's age to complete this topic Goals Goal Patient Goal Type Associated Problems [...] Improving( 1:34 PM EDT) No [employer]iyah [employer] Implanted Type Area Building Performance Consultant Device Identifier Shelf Expiration Date Model / Serial / Lot [place] Ultra Twinfix 4.5 - [id number] - [id number] Implanted:Qty: 1 on 03/21/2022 by Chalino Mariee MD at [facility] [place] Right: Shoulder [employer] (Acufex)-[id number] 11/03/2026 [id number] / [id number] / [id number] [place] Ultra Twinfix 5.5 - [id number] - [id number] Implanted:Qty: 1 on 03/21/2022 by Chalino Mariee MD at [facility] [place] Right: Shoulder [employer] (Acufex)-[id number] 10/07/2026 [id number] / [id number] / [id number] [place] Ultra Twinfix 5.5 - [id number] - [id number] Implanted:Qty: 1 on 03/21/2022 by Chalino Mariee MD at [facility] [place] Right: Shoulder [employer] (Acufex)-[id number] 10/11/2025 [id number] / [id number] / [id number] Hip Stem Delivery Bone Anchorors - S4403 - [id number] Implanted:Qty: 1 on 03/21/2022 by Chalino Mariee MD at [facility] [place] Right: Shoulder [employer] (Acufex)-[id number] 08/29/2024 4403 / [id number] / [id number] [place] Tendon Staple Puck - Z1246-7 - [id number] Implanted:Qty: 1 on 03/21/2022 by Chalino Mariee MD at [facility] [place] Right: Shoulder [employer] (Acufex)-[id number] 07/18/2024 2504-1 / 2504-1 / [id number] Cement Bone Simplex - E2673-8-935 - [id number] Implanted:Qty: 1 on 01/27/2021 by Stone Ibanez MD at [facility] Cement [facility] [place] [id number] 02/28/2022 6191-1-010 / 6191-1-001 / Screw Screw Left: Humerus Screw Screw Left: Wrist Nail Ti Escrew Lst 2.5mm 440mm - S475.925 - [id number] Implanted:Qty: 1 on 01/27/2021 by Stone Ibanez MD at [facility] Screw [employer]-[id number] 475.925 / 475.925 / Nail Ti Escrew Lstc 3mm 440mm - S475.930 - [id number] Implanted:Qty: 1 on 01/27/2021 by Stone Ibanez MD at [facility] Screw [employer] [place]-[id number] 475.930 / 475.930 / Screw 2.7mm Cortex T8 Star Selftap 22mm - [id number] Implanted:Qty: 2 on 04/14/2021 by Nan Bowman MD at [facility] Left: Wrist Synthes InvenQuery-[id number] 202.882 / / Screw 2.7mm Cortex T8 Star Selftap 28mm - [id number] Implanted:Qty: 1 on 04/14/2021 by Nan Bowman MD at [facility] Left: Wrist Synthes InvenQuery-[id number] 202.888 / / Screw 3.5mm Cortex Selftap 18mm - [id number] Implanted:Qty: 3 on 04/14/2021 by Stone Ibanez MD at [facility] Left: Wrist Synthes [facility]-[id number] 204.818 / / Description:SAP 38886 - NEED EXTENDED Screw 3.5mm Cortex Selftap 14mm - [id number] Implanted:Qty: 2 on 04/14/2021 by Stone Ibanez MD at [facility] Left: Wrist Synthes [facility]-[id number] 204.814 / / Description:SAP 00527 - NEED EXTENDED Plate Lcp 3.5mm 85mm 6h - [id number] Implanted:Qty: 2 on 04/14/2021 by Stone Ibanez MD at [facility] Left: Wrist Synthes [facility]-[id number] 223.561 / / Description:SAP 51033 - NEED EXTENDED Cement Pal[place]os W/Gent - [id number] Implanted:Qty: 1 on 04/14/2021 by Stone Ibanez MD at [facility] Left: Wrist [employer]-[id number] / / [id number] Screw 3.5mm Star Lock Selftap 10mm - [id number] Implanted:Qty: 1 on 04/14/2021 by Stone Ibanez MD at [facility] Left: Wrist Synthes [facility]-[id number] 212.101 / / Description:SAP 85593 - NEED EXTENDED Screw 3.5mm Cortex Selftap 20mm - [id number] Implanted:Qty: 3 on 04/14/2021 by Nan Bowman MD at [facility] Left: Wrist [employer] [place]-[id number] 204.820 / / Screw 3.5mm Cortex Selftap 16mm - [id number] Implanted:Qty: 3 on 04/14/2021 by aNn Bowman MD at [facility] Left: Wrist [employer] [place]-[id number] 204.816 / / Plate Lcp 2.7mm 10h 94mm - [id number] Implanted:Qty: 1 on 04/14/2021 by Nan Bowman MD at [facility] Left: Wrist [employer] [place]-[id number] 247.374 / / Screw 2.7mm Cortex T8 Star Selftap 20mm - [id number] Implanted:Qty: 3 on 04/14/2021 by Nan Bowman MD at [facility] Left: Wrist [employer] [place]-[id number] 202.880 / / Implant Scaffold Large - [id number] Implanted:Qty: 1 on 03/21/2022 by Chalino Mariee MD at [facility] Right: Shoulder [employer] (Acufex)-[id number] 09/26/2024 4566 / / [id number] Synthecure Synthetic Calcium Sulfate 10cc - [id number] Implanted:Qty: 1 on 06/12/2022 by Stone Ibanez MD at [facility] Left: [employer] [facility]-[id number] 11/29/2023 50-010 / / [id number] Procedures Procedure Name Priority Date/Time Associated Diagnosis Comments HEPATITIS C ANTIBODY W/REFLEX TO HCV QUANT PCR Routine 12/13/2020 6:49 PM EDT HIV 1/2 ANTIBODY/ANTIGEN SCREEN WITH REFLEX TO HIV I/II DIFFERENTIATION Routine 12/13/2020 6:49 PM EDT from Last 3 Months or Most Recently Relevant to Health Maintenance Results * HIV 1 & 2 Antibody/Antigen Screen (12/13/2020 6:49 PM EDT) HIV 1 & 2 Antibody/Anti gen Screen Nonreactive Nonreactive 12/13/2020 9:22 PM EDT [facility] Blood Venous blood specimen / Unknown Venipuncture / Unknown 12/13/2020 6:49 PM EDT 12/13/2020 7:12 PM EDT Nan Bowman MD LAB BLOOD ORDERABLES Final Res ult Performing Organization Address City/[facility]/ZIP Co de Phone Number [facility] [address] [place] [address] * Hepatitis C Antibody (12/13/2020 6:49 PM EDT) Hepatitis C Antibody Negative Negative 12/13/2020 9:22 PM EDT [facility]ALTH[facility]ARE [facility] Blood Venous blood specimen / Unknown Venipuncture / Unknown 12/13/2020 6:49 PM EDT 12/13/2020 7:12 PM EDT Nan Bowman MD LAB BLOOD ORDERABLES Final Res ult Performing Organization Address City/[facility] Co de Phone Number [facility] [address] [place] [address] from Last 3 Months or Most Recently Relevant to Health Maintenance Additional Health Concerns Infection Onset Date Last Indicated MRSA 03/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 Yes * Full Code Date Activated Date Inactivated Comments 12/09/2020 5:23 PM 12/13/2020 10:32 PM Question Answer Comments Patient has decision-making capacity? Yes Care Teams Oil And Gas Well Treatment Operator Relationship Specialty Start Date End Date Zeyad Craig MD [address] [place] [address] PCP - General 12/06/20
--- OUTSIDE RECORDS SUMMARY | 2025-06-18 06:44 | XMS_ITS | Encounter Summary ---
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
--- NOTE | 2025-06-18 07:00 | CT_ITS ---
FINAL REPORT TECHNIQUE: Axial CT images of the chest were obtained without contrast. Low-dose protocol was utilized. This study was performed with techniques to keep radiation doses as low as reasonably achievable (ALARA). Individualized dose reduction techniques using automated exposure control or adjustment of mA and/or kV according to the patient's size were employed. CLINICAL HISTORY: lung cancer screening current smoker 1/2ppd x 47 years COMPARISON: None FINDINGS: CT CHEST WITHOUT, LOW DOSE SCREENING CT Di Vol: 2.90 mGy DLP: 105.77 mGy*cm There is no axillary, mediastinal, or hilar adenopathy. The heart size is normal. There is no pleural or pericardial effusion. The lung windows show multiple small nodules bilaterally. There is a nodule in the medial right upper lobe measuring 5 mm on image 131 of series 3. 2 mm nodules in the left upper lobe are seen on image 139 of series 3, 142 of series 3, and 145 of series 3. There is also a 3 mm left upper lobe nodule on image 222 of series 3.. Limited images of the upper abdomen demonstrate no acute findings. IMPRESSION: Multiple small bilateral pulmonary nodules. LR Category 2: 12 month follow-up low-dose chest CT is recommended per Fleischner criteria. Reviewed, Interpreted and Dictated by Fortunato Jarrell MD Transcribed by Kailyn Foster Authenticated and [facility]
== END 2025-06-18 23:59 ==
LOC: RAD 06:43
PROVIDERS: PCP Student in an Organized Health Care Education/Training Program; Visit Provider Family Medicine
DX: Z12.2 Encounter for screening for malignant neoplasm of respiratory organs (principal); F17.210 Nicotine dependence, cigarettes, uncomplicated; R91.8 Other nonspecific abnormal finding of lung field
CPT/HCPCS: 71271